=== PATIENT | female | born 1955 | race Caucasian/White ===

== ENCOUNTER → 2019-05-04 | Outpatient (CLI) | payer SELFPAY | PROVIDERS: Family Provider Nurse Practitioner Family; PCP Nurse Practitioner Family; Visit Provider Otolaryngology | DX: E03.4 Atrophy of thyroid (acquired) (principal); E89.0 Postprocedural hypothyroidism; R13.19 Other dysphagia | CPT/HCPCS: 76536 ==

== ENCOUNTER → 2019-05-27 12:36 | Outpatient (BNVA) | payer MEDICARE, OTHER, SELFPAY | PROVIDERS: Family Provider Nurse Practitioner Family; PCP Nurse Practitioner Family; Referring Provider Nurse Practitioner Family; Visit Provider Otolaryngology | DX: R49.0 Dysphonia (principal); R13.10 Dysphagia, unspecified; Z90.09 Acquired absence of other part of head and neck | CPT/HCPCS: 31575; 99214 ==

== ENCOUNTER → 2019-07-15 11:23 | Outpatient (BNVA) | payer MEDICARE, OTHER, SELFPAY | PROVIDERS: Family Provider Nurse Practitioner Family; PCP Nurse Practitioner Family; Visit Provider Nurse Practitioner Family | DX: L40.50 Arthropathic psoriasis, unspecified (principal); I10 Essential (primary) hypertension; E55.9 Vitamin D deficiency, unspecified; Z79.899 Other long term (current) drug therapy; R09.81 Nasal congestion; D64.9 Anemia, unspecified; E78.5 Hyperlipidemia, unspecified; E89.0 Postprocedural hypothyroidism; H66.93 Otitis media, unspecified, bilateral | CPT/HCPCS: 80053; 80061; 81001; 82306; 83036; 83540; 84443; 85025; 85651; 86140 ==

== ENCOUNTER → 2019-09-29 12:54 | Outpatient (BNVA) | payer MEDICARE, OTHER, SELFPAY | PROVIDERS: Family Provider Nurse Practitioner Family; PCP Nurse Practitioner Family; Visit Provider Urology | DX: N39.46 Mixed incontinence (principal); N39.0 Urinary tract infection, site not specified; B37.3 Candidiasis of vulva and vagina; R10.32 Left lower quadrant pain | CPT/HCPCS: 81001 ==

== ENCOUNTER 2019-10-05 09:47 | Outpatient (CLI) | payer MEDICARE, OTHER, SELFPAY ==
--- NOTE | 2019-10-05 13:55 | PFTS_ITS ---
Date of Study:10/05/19 Date of Dictation: MECHANICS: Forced vital capacity (FVC) is normal. Forced expiratory volume in one second (FEV1) is normal. FEV1/FVC is normal. FLOW VOLUME LOOP: No peak was seen in the expiratory flow likely secondary to submaximal effort. LUNG VOLUMES: Total lung capacity (TLC) is normal. Residual volume (RV) is normal. DIFFUSING CAPACITY FOR CARBON MONOXIDE: Normal. INTERPRETATION: The pulmonary function tests are normal. Lung volumes are normal Gas exchange (DLCO) is normal. MTDD
== END 2019-10-05 09:48 | disposition home or self-care (01) ==
LOC: RT 09:51
PROVIDERS: PCP Nurse Practitioner Family; Visit Provider Internal Medicine Critical Care Medicine
DX: J42 Unspecified chronic bronchitis (principal)
CPT/HCPCS: 94010; 94726; 94729

== ENCOUNTER → 2019-10-20 15:51 | Outpatient (BNVA) | payer MEDICARE, OTHER, SELFPAY | PROVIDERS: PCP Nurse Practitioner Family; Visit Provider Internal Medicine | DX: L40.50 Arthropathic psoriasis, unspecified (principal); M17.0 Bilateral primary osteoarthritis of knee; Z11.59 Encounter for screening for other viral diseases; Z11.1 Encounter for screening for respiratory tuberculosis; Z79.899 Other long term (current) drug therapy; M54.5 Low back pain; M35.3 Polymyalgia rheumatica; Z72.89 Other problems related to lifestyle | CPT/HCPCS: 20610; 36415; 80053; 85025; 85651; 86140; 86480; 86704; 86803; 87340; 99214; J2001; J3301 ==

== ENCOUNTER 2019-10-23 14:30 | Outpatient (CLI) | payer MEDICARE, OTHER, SELFPAY ==
--- NOTE | 2019-10-23 15:15 | MR_ITS ---
WS: [id number] MRI LUMBAR SPINE NONCONTRAST TECHNIQUE: Sagittal T1, T2 and STIR imaging. Axial T1 and T2 imaging. CLINICAL INFORMATION: M54.5 Low back pain COMPARISON: None. FINDINGS: Mild lumbar curve. No acute compression. No high-grade central canal stenosis. Anterior wedging in th e lower thoracic spine at T11 and T12. Mild disc space narrowing lower thoracic and lumbar spine. End plate degenerative changes L4-5. Endplate Schmorl's node inferior endplate L4. L1-L2: Slight retrolisthesis. Narrowing of the subarticular recess bilaterally. Moderate facet arthro alexia. Mild left and no significant right foraminal narrowing. L2-L3: Right pericentral protrusion with moderate central canal stenosis. Impingement traversing righ t L3 nerve root. Moderate facet arthropathy. Mild right and no significant left foraminal narrowing. L3-L4: Mild disc bulging with osteophytic ridging. Moderate central canal stenosis. Impingement on th e subarticular recess and traversing L4 nerve roots bilaterally. Mild right and no significant left f oraminal narrowing. Moderate facet arthropathy. L4-L5: Mild disc bulging with slight effacement of ventral thecal sac. Slight narrowing of the right subarticular recess. Mild right and no significant left foraminal narrowing. Moderate facet arthropat hy. L5-S1: Slight anterolisthesis L5 on S1. Tiny central protrusion with slight effacement of ventral the viki sac. Advanced facet arthropathy. Mild bilateral foraminal narrowing. Visualized pelvic bony structures: Normal. Paravertebral soft tissues: Normal. MR/MR lumbar spine wo con* [id number] IMPRESSION: 1. Mild lumbar curve. No acute compression. 2. Moderate central canal stenosis L2-L3 and L3-L4 due to disc bulging with os teophytic ridging and facet arthropathy. 3. Impingement on the right subarticular recess L2-3 and bilateral subarticula r recess L3-4. Impingement traversing right L3 and traversing L4 nerve roots re spectively. 4. Mild to moderate foraminal narrowing right L2-3, right L3-4, and bilateral L5-S1. 5. Moderate to advanced facet arthropathy L4-L5 and L5-S1.
== END 2019-10-23 14:31 | disposition home or self-care (01) ==
LOC: RADSHAW 14:38
PROVIDERS: PCP Nurse Practitioner Family; Visit Provider Internal Medicine
DX: M48.061 Spinal stenosis, lumbar region without neurogenic claudication (principal); M51.26 Other intervertebral disc displacement, lumbar region; M25.78 Osteophyte, vertebrae; M47.817 Spondylosis without myelopathy or radiculopathy, lumbosacral region
CPT/HCPCS: 72148

== ENCOUNTER → 2019-11-05 09:02 | Outpatient (BNVA) | payer MEDICARE, OTHER, SELFPAY | PROVIDERS: PCP Nurse Practitioner Family; Referring Provider Internal Medicine; Visit Provider Anesthesiology Pain Medicine | DX: M47.816 Spondylosis without myelopathy or radiculopathy, lumbar region (principal); M51.16 Intervertebral disc disorders with radiculopathy, lumbar region; M43.10 Spondylolisthesis, site unspecified; M62.830 Muscle spasm of back; Z79.891 Long term (current) use of opiate analgesic | CPT/HCPCS: 99204; 99205 ==

== ENCOUNTER 2019-11-12 06:00 | Outpatient (RCR) | payer MEDICARE, OTHER, SELFPAY | END 2019-12-04 23:59 | disposition home or self-care (01) | LOC: SPT 06:00 | PROVIDERS: PCP Nurse Practitioner Family; Referring Provider Anesthesiology Pain Medicine; Visit Provider Anesthesiology Pain Medicine | DX: M47.816 Spondylosis without myelopathy or radiculopathy, lumbar region (principal) | CPT/HCPCS: 97110; 97112; 97163 ==

== ENCOUNTER → 2019-11-23 12:08 | Outpatient (BNVA) | payer MEDICARE, OTHER, SELFPAY | PROVIDERS: PCP Nurse Practitioner Family; Visit Provider Anesthesiology Pain Medicine | DX: M47.816 Spondylosis without myelopathy or radiculopathy, lumbar region (principal) | CPT/HCPCS: 64493; 64494; 64495; J3490 ==

== ENCOUNTER → 2019-12-07 09:57 | Outpatient (BNVA) | payer MEDICARE, OTHER, SELFPAY | PROVIDERS: PCP Nurse Practitioner Family; Visit Provider Anesthesiology Pain Medicine | DX: M51.16 Intervertebral disc disorders with radiculopathy, lumbar region (principal); M47.816 Spondylosis without myelopathy or radiculopathy, lumbar region; M43.10 Spondylolisthesis, site unspecified; M62.830 Muscle spasm of back; F41.9 Anxiety disorder, unspecified | CPT/HCPCS: 99213 ==

== ENCOUNTER 2019-12-08 08:43 | Outpatient (CLI) | payer MEDICARE, OTHER, SELFPAY ==
--- NOTE | 2019-12-08 09:30 | XRR_ITS ---
PROCEDURE INFORMATION: Exam: XR Abdomen, 1 View Exam date and time: 12/08/2019 9:05 AM Age: 64 years old Clinical indication: Abdominal pain; Localized; Left lower quadrant (llq); Prior surgery; Surgery type: Hystero, gb; Additional info: Left side pain TECHNIQUE: Imaging protocol: XR of the abdomen. Views: Frontal supine view of the abdomen. 1 View. COMPARISON: CT abdomen con [id number] 02/19/2018 11:23 AM FINDINGS: Lungs: Calcified granuloma right lower lobe Gastrointestinal tract: Bowel gas pattern is nonspecific. No mass effect upon the bowel loops. Distal rectal gas. Scattered loops of air filled small bowel none of which are dilated. Organs: Surgical clips are present in the region of the gallbladder fossa. Bones/joints: Prior hip arthroplasty on the right No acute process within the osseous structures of the spine or pelvis. Soft tissues: No appreciable calcifications XR/XR KUB [id number] IMPRESSION: Bowel gas pattern is nonspecific.
== END 2019-12-08 08:44 | disposition home or self-care (01) ==
LOC: RAD 08:44
PROVIDERS: PCP Nurse Practitioner Family; Visit Provider Urology
DX: R10.32 Left lower quadrant pain (principal)
CPT/HCPCS: 74018

== ENCOUNTER 2019-12-08 08:46 | Outpatient (CLI) | payer MEDICARE, OTHER, SELFPAY ==
--- NOTE | 2019-12-08 09:30 | US_ITS ---
WS: [id number] RENAL ULTRASOUND HISTORY: LL quadrant pain COMPARISON: None available. TECHNIQUE: 2-D and color Doppler imaging of the kidney submitted. Right kidney: 11.1 cm x 4.8 cm x 5.1 cm. Normal echogenicity with no hydronephrosis or mass. Left kidney: 11.8 cm x 4.3 cm x 4.6 cm. Normal echogenicity with no hydronephrosis or mass. Aorta: Normal. Urinary Bladder: Minimally distended. US/US renal BI* [id number] IMPRESSION: Normal renal ultrasound.
== END 2019-12-08 08:47 | disposition home or self-care (01) ==
LOC: US 08:47
PROVIDERS: PCP Nurse Practitioner Family; Visit Provider Urology
DX: R10.32 Left lower quadrant pain (principal); N39.0 Urinary tract infection, site not specified
CPT/HCPCS: 74018; 76770; 81001

== ENCOUNTER → 2019-12-14 13:31 | Outpatient (BNVA) | payer MEDICARE, OTHER, SELFPAY | PROVIDERS: PCP Nurse Practitioner Family; Visit Provider Anesthesiology Pain Medicine | DX: M47.816 Spondylosis without myelopathy or radiculopathy, lumbar region (principal) | CPT/HCPCS: 64635; 64636; J1030 ==

== ENCOUNTER → 2019-12-28 12:44 | Outpatient (BNVA) | payer MEDICARE, OTHER, SELFPAY | PROVIDERS: PCP Nurse Practitioner Family; Visit Provider Anesthesiology Pain Medicine | DX: M47.816 Spondylosis without myelopathy or radiculopathy, lumbar region (principal) | CPT/HCPCS: 64635; 64636; J1030 ==

== ENCOUNTER 2020-01-08 13:19 | Outpatient (CLI) | payer MEDICARE, OTHER, SELFPAY ==
--- NOTE | 2020-01-08 14:15 | USCV_ITS ---
Naida Atkins Age: 65 Gender: F : 1955 Exam Date: 01/08/2020 13:14 Ordering Phys: Pasha Sol M.D ([email or web address]) Technologist: Exam Location: [facility] [place] Indication: PAIN OF LOWER EXTREMITY RIGHT LEFT Brachial 131.00 mmHg Brachial 137.00 mmHg Pressure (mmHg) Waveform Pressure (mmHg) Waveform 146.00 ORACLE PROGRAMMER 150.00 142.00 DPA 131.00 1.07 Ankle/Brachial Index 1.09 75.00 Pre-Exercise Toe Pressure 59.00 0.55 Pre-Exercise Toe/Brachial Index 0.43 FINDINGS Normal resting ABIs bilaterally Diminished resting TBI bilaterally CONCLUSIONS Normal resting ABIs with diminished TBIs bilaterally, suggestive of mild to moderate peripheral artery disease involving the distal vessels bilaterally Dr Akash Turpin MD FAC (Electronically Signed) Final Date: 10 January 2020 18:25 S
== END 2020-01-08 13:20 | disposition home or self-care (01) ==
LOC: US 13:20
PROVIDERS: PCP Nurse Practitioner Family; Visit Provider Internal Medicine
DX: M79.604 Pain in right leg (principal)
CPT/HCPCS: 93922

== ENCOUNTER → 2020-01-12 08:58 | Outpatient (BNVA) | payer MEDICARE, OTHER, SELFPAY | PROVIDERS: PCP Nurse Practitioner Family; Visit Provider Anesthesiology Pain Medicine | DX: M47.816 Spondylosis without myelopathy or radiculopathy, lumbar region (principal); M51.16 Intervertebral disc disorders with radiculopathy, lumbar region; M43.10 Spondylolisthesis, site unspecified; M62.830 Muscle spasm of back; Z79.891 Long term (current) use of opiate analgesic | CPT/HCPCS: 99213; 99214 ==

== ENCOUNTER 2020-02-01 10:46 | Outpatient (CLI) | payer MEDICARE, OTHER, SELFPAY ==
--- NOTE | 2020-02-01 10:55 | MM_ITS ---
WS: [id number] BILATERAL DIGITAL SCREENING MAMMOGRAM WITH CAD CLINICAL INFORMATION: SCREENING HISTORY: Screening mammogram. No current complaints. COMPARISON: and TECHNIQUE: Bilateral CC and MLO views. FINDINGS: Fatty-replaced breasts bilaterally. No suspicious focal mass, asymmetry, calcifications, or java web architect ural distortion. No evidence of malignancy. Stable intramammary lymph nodes. Lucent centered calcific ations. Stable clustered punctate calcifications left breast. MM/[place] [id number] IMPRESSION: BI-RADS: 2-Benign FOLLOW UP: 1 Year Follow-up Recommend return to annual screening mammography.
== END 2020-02-01 10:47 | disposition home or self-care (01) ==
LOC: RADSHAW 10:52
PROVIDERS: PCP Nurse Practitioner Family; Visit Provider Nurse Practitioner Family
DX: Z12.31 Encounter for screening mammogram for malignant neoplasm of breast (principal); M47.816 Spondylosis without myelopathy or radiculopathy, lumbar region; M51.16 Intervertebral disc disorders with radiculopathy, lumbar region; Z79.891 Long term (current) use of opiate analgesic
CPT/HCPCS: 64483; 64484; 77067; J1030; J3490

== ENCOUNTER → 2020-02-15 09:55 | Outpatient (BNVA) | payer MEDICARE, OTHER, SELFPAY | PROVIDERS: PCP Nurse Practitioner Family; Visit Provider Anesthesiology Pain Medicine | DX: M51.16 Intervertebral disc disorders with radiculopathy, lumbar region (principal); M47.816 Spondylosis without myelopathy or radiculopathy, lumbar region; M79.604 Pain in right leg; M79.605 Pain in left leg; M43.10 Spondylolisthesis, site unspecified; M19.90 Unspecified osteoarthritis, unspecified site; M62.830 Muscle spasm of back | CPT/HCPCS: 99212; 99213 ==

== ENCOUNTER → 2020-05-24 10:36 | Outpatient (BNVA) | payer MEDICARE, OTHER, SELFPAY | PROVIDERS: PCP Nurse Practitioner Family; Visit Provider Anesthesiology Pain Medicine | DX: M47.816 Spondylosis without myelopathy or radiculopathy, lumbar region (principal); M51.16 Intervertebral disc disorders with radiculopathy, lumbar region; M79.604 Pain in right leg; M79.605 Pain in left leg; M43.10 Spondylolisthesis, site unspecified; M19.90 Unspecified osteoarthritis, unspecified site; M62.830 Muscle spasm of back; Z79.891 Long term (current) use of opiate analgesic | CPT/HCPCS: 99214 ==

== ENCOUNTER → 2020-05-30 13:36 | Outpatient (BNVA) | payer MEDICARE, OTHER, SELFPAY | PROVIDERS: PCP Nurse Practitioner Family; Visit Provider Internal Medicine | DX: L40.50 Arthropathic psoriasis, unspecified (principal); M19.90 Unspecified osteoarthritis, unspecified site; Z11.1 Encounter for screening for respiratory tuberculosis; Z11.59 Encounter for screening for other viral diseases; Z79.899 Other long term (current) drug therapy; Z87.891 Personal history of nicotine dependence | CPT/HCPCS: 99214 ==

== ENCOUNTER 2020-05-31 10:48 | Outpatient (CLI) | payer MEDICARE, OTHER, SELFPAY ==
--- NOTE | 2020-05-31 11:11 | XR_ITS ---
WS: [id number] Exam: XR foot LT 2V [id number] Date/Time of Exam: 05/31/2020 11:19 AM Reason For Exam: M25.50 - Pain in unspecified joint No fracture or dislocation. Mild degenerative changes in the IP joints, the first MP joint in the mid foot joints. Small plantar heel spur. Normal soft tissues. XR/XR foot LT 2V [id number] IMPRESSION: 1. Mild degenerative changes. No other significant finding.
--- NOTE | 2020-05-31 11:11 | XR_ITS ---
WS: [id number] Exam: XR hand LT 2V [id number] Date/Time of Exam: 05/31/2020 11:19 AM Reason For Exam: L40.50 - Arthropathic psoriasis, unspecified No acute fracture or dislocation. Moderate DJD of the IP joints. Severe DJD at the carpometacarpal fahad int of thumb with dpyn-bi-yoax articulation. Normal soft tissues. XR/XR hand LT 2V [id number] IMPRESSION: 1. Moderate DJD of the IP joints. Advanced DJD at the carpometacarpal joint of the thumb.
--- NOTE | 2020-05-31 11:11 | XR_ITS ---
WS: [id number] Exam: XR knee LT 1-2V [id number] Date/Time of Exam: 05/31/2020 11:19 AM Reason For Exam: L40.50 - Arthropathic psoriasis, unspecified Comparison 10/04/2015 Moderately advanced tricompartmental degenerative change noted. No fracture or dislocation. No joint effusion noted. There are probably calcified loose joint bodies present. XR/XR knee LT 1-2V [id number] IMPRESSION: 1. Moderately advanced tricompartmental DJD. No fracture or joint effusion. 2. Probable calcified loose joint bodies.
--- NOTE | 2020-05-31 11:11 | XR_ITS ---
WS: [id number] Exam: XR knee RT 1-2V 16253 Date/Time of Exam: 05/31/2020 11:19 AM Reason For Exam: L40.50 - Arthropathic psoriasis, unspecified Comparison 09/02/2017. There is advanced tricompartmental DJD of the right knee most severe involving the medial joint leah rtment. There is spurring of the posterior patella. There are probably calcified loose joint bodies p resent. No joint effusion is seen. Valgus deformity of the knee. XR/XR knee RT -2V [id number] IMPRESSION: 1. Advanced tricompartmental DJD. No fracture or dislocation. 2. There are probably calcified loose joint bodies present.
--- NOTE | 2020-05-31 11:11 | XR_ITS ---
WS: [id number] Exam: XR foot RT 2V [id number] Date/Time of Exam: 05/31/2020 11:19 AM Reason For Exam: M25.50 - Pain in unspecified joint No fracture or dislocation. Mild degenerative changes of the first MP joint, the IP joints in the mid foot joints. Normal soft tissues. XR/XR foot RT 2V [id number] IMPRESSION: 1. Mild degenerative changes. 2. No fracture or dislocation.
--- NOTE | 2020-05-31 11:11 | XR_ITS ---
WS: [id number] Exam: XR shoulder LT min 2V* [id number] Date/Time of Exam: 05/31/2020 11:19 AM Reason For Exam: L40.50 - Arthropathic psoriasis, unspecified The projections of the shoulder reveal no fractures, anomalies, soft tissue swelling, or calcificatio ns. There is normal bony alignment. No irregularity of the bony architecture is noted. XR/XR shoulder LT min 2V* [id number] IMPRESSION: Negative left shoulder.
--- NOTE | 2020-05-31 11:11 | XR_ITS ---
WS: [id number] Exam: XR hand RT 2V [id number] Date/Time of Exam: 05/31/2020 11:19 AM Reason For Exam: L40.50 - Arthropathic psoriasis, unspecified No acute fracture or dislocation. Moderate degenerative changes in the IP joints. Severe DJD at the c arpometacarpal joint of the thumb with [id number]-ij-grom articulation. Normal soft tissues. XR/XR hand RT 2V [id number] IMPRESSION: 1. Moderate degenerative change of the IP joints. Severe degenerative change at the carpometacarpal joint of the thumb.
--- NOTE | 2020-05-31 11:11 | XR_ITS ---
WS: [id number] Exam: XR sacroiliac jts m 3V [id number] Date/Time of Exam: 05/31/2020 11:19 AM Reason For Exam: L40.9 - Psoriasis, unspecified No fracture or dislocation. Moderate degenerative change of the sacroiliac joints. The SI joints are open. Partially visualized right total hip replacement. XR/XR sacroiliac jts m 3V 29306 IMPRESSION: 1. Moderate SI joint DJD. No fracture or other significant finding.
--- NOTE | 2020-05-31 11:11 | XR_ITS ---
WS: [id number] Exam: XR shoulder RT min 2V* [id number] Date/Time of Exam: 05/31/2020 11:19 AM Reason For Exam: L40.50 - Arthropathic psoriasis, unspecified No fracture or dislocation. Minimal DJD of the glenohumeral joint and the AC joint. Normal soft tissu es. XR/XR shoulder RT min 2V* [id number] IMPRESSION: 1. Minimal degenerative changes.
[2020-05-31 12:39] LABS: Basophils # 0.1 10^3/uL (0.0-0.1); Basophils % 0.7 %; Eosinophils # 0.3 10^3/uL (0.0-0.8); Eosinophils % 2.9 %; Hemoglobin 11.6 g/dL (11.5-15.3); Lymphocytes % 29.5 %; Mean Corpuscular HGB Conc 31.4 g/dL (30.0-36.0); Mean Corpuscular Hemoglobin 27.9 pg (28.0-34.0); Mean Corpuscular Volume 88.9 fL (81-99); Mean Platelet Volume 10.4 fL (7.4-10.4); Monocytes # 0.5 10^3/uL (0.2-0.9); Monocytes % 4.9 %; Neutrophils # 6.28 10^3/uL (1.8-7.7); Neutrophils % 61.7 %; Nucleated Red Blood Cells % 0 %; Platelet Count 413 10^3/cmm (130-400); Red Blood Count 4.16 10^6/uL (4.1-5.3); Red Cell Distribution Width 13.3 % (12.1-15.1); White Blood Count 10.2 10^3/uL (4.0-10.0)
[2020-05-31 12:44] LABS: Alanine Aminotransferase 8 U/L (0-33); Albumin Level 3.8 g/dL (3.5-5.2); Alkaline Phosphatase 124 IU/L (35-105); Anion Gap 12.7 (5-19); Aspartate Amino Transferase 9 U/L (0-32); Blood Urea Nitrogen 20 mg/dL (8-23); C Reactive Protein 17.5 mg/L (0.0-4.9); Calcium 9.5 mg/dL (8.5-10.5); Carbon Dioxide 28 mmol/L (22-29); Chloride 97 mmol/L (98-107); Globulin 3.9 g/dL (1.3-4.6); Glomerular Filtration Rate 55.5 mL/min (90-130); Glucose 99 mg/dL (65-115); Osmolality Calculated 281 mOsm/kg (285-295); Potassium 3.7 mmol/L (3.5-5.1); Sodium 134 mmol/L (136-145); Total Bilirubin 0.4 mg/dL (0.15-1.2); Total Protein 7.7 g/dL (6.6-8.7)
[2020-05-31 15:06] LABS: Erythrocyte Sedimentation Rate 79 mm/hr (0-15)
[2020-05-31 15:41] LABS: Hepatitis B Core AB, Total Non-Reactive (Nonreactive); Hepatitis B Surface Antigen Non-Reactive (Nonreactive); Hepatitis C Virus Antibody Non-Reactive (Nonreactive)
[2020-06-02 14:58] LABS: Quantiferon Mitogen 9.14 IU/mL; Quantiferon Nil 0.01 IU/mL; Quantiferon Plus TB2 0.01 IU/mL; Quantiferon TB Gold NEGATIVE (NEGATIVE)
[2020-06-03 20:04] LABS: HLA-B27 NEGATIVE (NEGATIVE)
== END 2020-05-31 10:49 | disposition home or self-care (01) ==
LOC: RAD 11:02
PROVIDERS: PCP Nurse Practitioner Family; Visit Provider Internal Medicine
DX: L40.50 Arthropathic psoriasis, unspecified (principal); M32.9 Systemic lupus erythematosus, unspecified; D86.9 Sarcoidosis, unspecified; Z51.81 Encounter for therapeutic drug level monitoring; M46.1 Sacroiliitis, not elsewhere classified; M17.0 Bilateral primary osteoarthritis of knee; M19.042 Primary osteoarthritis, left hand
CPT/HCPCS: 36415; 72202; 73030; 73120; 73560; 73620; 80053; 85025; 85651; 86140; 86480; 86704; 86803; 86812; 87340

== ENCOUNTER → 2020-07-11 08:45 | Outpatient (BNVA) | payer MEDICARE, OTHER, SELFPAY | PROVIDERS: PCP Nurse Practitioner Family; Visit Provider Nurse Practitioner Family | DX: N39.0 Urinary tract infection, site not specified (principal); A49.9 Bacterial infection, unspecified; M79.604 Pain in right leg; M79.605 Pain in left leg; B37.3 Candidiasis of vulva and vagina | CPT/HCPCS: 81000; 81003 ==

== ENCOUNTER → 2020-08-26 11:27 | Outpatient (BNVA) | payer MEDICARE, OTHER, SELFPAY | PROVIDERS: PCP Nurse Practitioner Family; Visit Provider Internal Medicine | DX: L40.50 Arthropathic psoriasis, unspecified (principal); Z79.899 Other long term (current) drug therapy; Z87.891 Personal history of nicotine dependence | CPT/HCPCS: 36415; 80053; 85025; 99214 ==

== ENCOUNTER → 2020-12-08 15:18 | Outpatient (BNVA) | payer MEDICARE, OTHER, SELFPAY | PROVIDERS: PCP Nurse Practitioner Family; Visit Provider Nurse Practitioner Family | DX: I10 Essential (primary) hypertension (principal); D64.9 Anemia, unspecified; E78.2 Mixed hyperlipidemia; I82.409 Acute embolism and thrombosis of unspecified deep veins of unspecified lower extremity; M47.816 Spondylosis without myelopathy or radiculopathy, lumbar region; M51.16 Intervertebral disc disorders with radiculopathy, lumbar region; Z79.899 Other long term (current) drug therapy | CPT/HCPCS: 80053; 80061; 81003; 82306; 82607; 82728; 82746; 83036; 83540; 84443; 85025 ==

== ENCOUNTER → 2021-01-11 11:42 | Outpatient (BNVA) | payer MEDICARE, OTHER, SELFPAY | PROVIDERS: PCP Nurse Practitioner Family; Visit Provider Nurse Practitioner Family | DX: N39.0 Urinary tract infection, site not specified (principal); R10.2 Pelvic and perineal pain | CPT/HCPCS: 81003; 87086 ==

== ENCOUNTER → 2021-01-12 14:47 | Outpatient (BNVA) | payer MEDICARE, OTHER, SELFPAY | PROVIDERS: PCP Nurse Practitioner Family; Visit Provider Internal Medicine | DX: L40.50 Arthropathic psoriasis, unspecified (principal); Z79.899 Other long term (current) drug therapy; E55.9 Vitamin D deficiency, unspecified; F17.200 Nicotine dependence, unspecified, uncomplicated | CPT/HCPCS: 99213 ==

== ENCOUNTER 2021-01-16 15:24 | Outpatient (CLI) | payer MEDICARE, OTHER, SELFPAY ==
--- NOTE | 2021-01-16 15:38 | XR_ITS ---
WS: [id number] XR lumbar spine f/e only [id number] REASON FOR EXAM: SPONDYLOLISTHESIS,LUMBAR PLEASE COMMENT ON INSTABILITY FINDINGS: Intervertebral disc spaces L1-S1 are narrowed. No significant vertebral body abnormality. In the neutral position there is anterolisthesis of 7 mm of L2 in relation to L1. No other significan t listhesis is identified in the neutral position. On the extension views the above anterolisthesis increases by 2 to 3 mm. On the flexion view there is possibly 1 to 2 mm of reduction of the anterolisthesis, however this is somewhat equivocal. No other abnormal vertebral body movement is noted on the flexion and extension views. XR/XR lumbar spine f/e only 28561 IMPRESSION: Anterolisthesis of L2 in relation to L1 as above.
== END 2021-01-16 15:25 | disposition home or self-care (01) ==
LOC: RAD 15:30
PROVIDERS: PCP Nurse Practitioner Family; Visit Provider Nurse Practitioner
DX: M43.16 Spondylolisthesis, lumbar region (principal)
CPT/HCPCS: 72120

== ENCOUNTER 2021-02-07 14:03 | Outpatient (CLI) | payer MEDICARE, OTHER, SELFPAY ==
--- NOTE | 2021-02-07 14:30 | US_ITS ---
WS: [id number] TRANSVAGINAL PELVIC ULTRASOUND HISTORY: R10.2 - Pelvic and perineal pain COMPARISON: None available. Status post complete hysterectomy. There is no pelvic mass or fluid. No adnexal masses are identified . US/US transvaginal [id number] IMPRESSION: Normal transvaginal pelvic ultrasound in a patient status post complete hystere ctomy.
== END 2021-02-07 14:04 | disposition home or self-care (01) ==
LOC: RAD 14:07
PROVIDERS: PCP Nurse Practitioner Family; Visit Provider Nurse Practitioner Family
DX: R10.2 Pelvic and perineal pain (principal); Z90.710 Acquired absence of both cervix and uterus
CPT/HCPCS: 76830

== ENCOUNTER → 2021-02-21 11:16 | Outpatient (BNVA) | payer MEDICARE, OTHER, SELFPAY | PROVIDERS: PCP Nurse Practitioner Family; Visit Provider Nurse Practitioner Family | DX: R32 Unspecified urinary incontinence (principal) | CPT/HCPCS: 81003 ==

== ENCOUNTER → 2021-02-22 11:15 | Outpatient (BNVA) | payer MEDICARE, OTHER, SELFPAY | PROVIDERS: PCP Nurse Practitioner Family; Visit Provider Nurse Practitioner Family | DX: I10 Essential (primary) hypertension (principal) | CPT/HCPCS: 80053; 83880 ==

== ENCOUNTER 2021-02-27 09:33 | Outpatient (CLI) | payer MEDICARE, OTHER, SELFPAY ==
--- NOTE | 2021-02-27 09:51 | XR_ITS ---
WS: [id number] HIP WITH PELVIS RIGHT TECHNIQUE: 3 views of the right hip with pelvis CLINICAL INFORMATION: M25.551 - Pain in right hip COMPARISON: None. FINDINGS: Right LAISHA. No evidence of hardware loosening. Osteopenia. XR/XR hip RT 2-3V wo/w pel* [id number] IMPRESSION: Normal right LAISHA. Tonnis classification: NA
== END 2021-02-27 09:34 | disposition home or self-care (01) ==
PROVIDERS: PCP Nurse Practitioner Family; Visit Provider Nurse Practitioner Family
DX: M25.551 Pain in right hip (principal)
CPT/HCPCS: 73502

== ENCOUNTER → 2021-04-10 10:30 | Outpatient (BNVA) | payer MEDICARE, OTHER, SELFPAY | PROVIDERS: PCP Nurse Practitioner Family; Visit Provider Internal Medicine | DX: M19.90 Unspecified osteoarthritis, unspecified site (principal); M43.10 Spondylolisthesis, site unspecified; Z79.899 Other long term (current) drug therapy | CPT/HCPCS: 80053; 85025; 85651; 86140 ==

== ENCOUNTER 2021-05-08 14:42 | Outpatient (CLI) | payer MEDICARE, OTHER, SELFPAY ==
--- NOTE | 2021-05-08 15:00 | MM_ITS ---
WS: [id number] BILATERAL SCREENING DIGITAL MAMMOGRAM WITH CAD HISTORY: Screening evaluation. COMPARISON: 02/01/2020, 02/20/2019 and 01/30/2019 Bilateral CC and MLO views submitted. Computer aided detection analyzed. Breast composition: There are scattered areas of fibroglandular density. No suspicious masses, microc alcifications or architectural distortion. Asymmetries in the upper outer quadrant of each breast are stable over multiple prior examinations. Benign calcifications. MM/[place] [id number] IMPRESSION: BI-RADS: 2-Benign FOLLOW UP: 1 Year Follow-up
== END 2021-05-08 14:43 | disposition home or self-care (01) ==
LOC: RADSHAW 14:47
PROVIDERS: PCP Nurse Practitioner Family; Visit Provider Nurse Practitioner Family
DX: Z12.31 Encounter for screening mammogram for malignant neoplasm of breast (principal)
CPT/HCPCS: 77067

== ENCOUNTER → 2021-06-02 10:18 | Outpatient (BNVA) | payer MEDICARE, OTHER, SELFPAY | PROVIDERS: PCP Nurse Practitioner Family; Visit Provider Internal Medicine | DX: L40.50 Arthropathic psoriasis, unspecified (principal); R70.0 Elevated erythrocyte sedimentation rate; R60.9 Edema, unspecified; F17.210 Nicotine dependence, cigarettes, uncomplicated | CPT/HCPCS: 99214 ==

== ENCOUNTER 2021-06-26 10:00 | Emergency (ER) | payer MEDICARE, OTHER, SELFPAY ==
--- NOTE | 2021-06-26 10:01 | ECG_ITS ---
[facility] Test Date: 2021-06-26 Pat Name: Naida Atkins Department: Room: Gender: Female Outreach Nurse: : 1955 Requested By: Addie Chen Order Number: [id number] Isidra MD: Pasha Sol M.D. Measurements Intervals [place] Rate: 70 P: 46 AL: 209 QRS: 24 QRSD: 102 T: 41 QT: 392 QTc: 425 Interpretive Statements SINUS RHYTHM No previous ECG available for comparison Electronically Signed On 06-26-2021 12:12:18 SHREDDED FILLER MACHINE WRAPPER LAYER by Pasha Sol M.D. [id number]
--- NOTE | 2021-06-26 10:01 | XR_ITS ---
WS: [id number] PORTABLE CHEST HISTORY: chest pain COMPARISON: None available. Lungs are mildly hyperinflated. Benign granuloma throughout the RIGHT lung. No pneumonia. Normal vasculature. No pleural effusion or pneumothorax. Cardiac size: Normal. Mediastinum/Aorta: Normal mediastinum. No osseous abnormality seen. XR/XR chest 1V portable [id number] IMPRESSION: Mild chronic emphysema and prior granulomatous disease. No pneumonia.
[2021-06-26 10:07] VITALS: BP 161/87; PULSE 75; RESP 16; TEMP 36.3; O2SAT 100; BMI 43.2
--- NOTE | 2021-06-26 10:18 | W.ED.CHESTPA ---
HPI - Chest Pain General: Chief Complaint: Chest Pain Stated Complaint: POSSIBLE HEART ATTACK Time Seen by Provider: 06/26/21 10:08 Source: patient Mode of arrival: ambulatory History of Present Illness: Six 6-year-old female presents emergency room an episode of chest pain that began this morning essentially while at rest she was preparing a meal upper left chest pain radiating to left shoulder lasted about 15 minutes then resolve spontaneously. She has no known history of coronary disease she has a history of psoriatic arthritis. Late last month she was seen by her eligibility clerk there was an elevated BNP so an echocardiogram was ordered. She is not previously had any kind of stress testing or angiogram. Patient has not previously had any episodes of chest pain prior to this morning. She denies any history of coronary disease she is not diabetic she does have a history of hypertension. MD complaint: chest pain Onset (ago): hour(s) Timing of current episode: episodic Prior episodes: No Onset: during rest Pain location: left chest Pain radiation: left shoulder Severity: mild Quality: heaviness Relieving factors: nothing Exacerbating factors: nothing Associated symptoms: Deny abdominal pain, diaphoresis, dyspnea, fever(s), leg edema, nausea, palpitations, sense of impending doom, syncope or vomiting Treatment prior to arrival: none Review of Systems Const: Denies: fever(s) or diaphoresis ENMT: Denies: throat pain, ear or mastoid pain, nasal discharge or nasal congestion Card: Denies: palpitations or syncope Resp: Denies: dyspnea GI: Denies: abdominal pain, nausea or vomiting : Denies: flank pain, difficulty voiding, dysuria, urinary frequency or urinary urgency Skin/Breast: Denies: rash or pruritus [facility] ED PFSH: Medical History (Updated 06/26/21 @ 13:00 by Jonnie Pickering DO) Anemia Asthma Bacterial otitis media Breast cancer screening by mammogram CKD (chronic kidney disease) COPD (chronic obstructive pulmonary disease) DDD (degenerative disc disease) DVT (deep venous thrombosis) Edema Edema Essential hypertension Fatigue Fibromyalgia GERD (gastroesophageal reflux disease) Hyperlipidemia Lower respiratory infection Lower respiratory infection Lumbago Medication management Mixed stress and urge urinary incontinence Obesity Obesity, Class III, BMI 40-49.9 (morbid obesity) SAURAV (obstructive sleep apnea) Osteoarthritis Otitis media Pelvic pain in female Post-surgical hypothyroidism Psoriatic arthritis Recurrent UTI Right hip pain RLS (restless legs syndrome) Sinusitis Urinary incontinence Urinary incontinence Vitamin B12 deficiency anemia Vitamin D deficiency Yeast vaginitis Surgical History H/O thyroidectomy Hx of elbow surgery S/P carpal tunnel release S/P cholecystectomy S/P hip replacement S/P hysterectomy Family History Brother Cancer Father Cancer Other CAD (coronary artery disease) Diabetes Hyperlipidemia Hypertension Obesity Social History Smoking and tobacco status: former smoker Alcohol intake: current Alcohol intake frequency: holidays/special occasions only Adopted: No Caregiver/support person: No Lives independently: No Household members: spouse Marital status: Current occupational status: disabled Previous occupational history: [employer] History of recent travel: No Current gender identity: Female Physical Exam Const: COMMON NORMALS: no acute distress GENERAL APPEARANCE: cooperative and comfortable ORIENTATION/CONSCIOUSNESS: Yes awake, Yes oriented to person, Yes oriented to place and Yes oriented to time HENMT: COMMON NORMALS: normocephalic, atraumatic and hearing grossly normal bilaterally HEAD & SCALP: normocephalic and atraumatic Neck/C-Spine: COMMON NORMALS: no JVD Resp: COMMON NORMALS: normal respiratory effort, No retractions, No use of accessory muscles and clear to auscultation bilaterally AUSCULTATION: clear to auscultation bilaterally Cardio: COMMON NORMALS: no JVD, regular rate, regular rhythm and No murmurs present (Cardio) RATE: regular rate RHYTHM: regular rhythm GI: COMMON NORMALS: Soft to palpation and No hepatosplenomegaly present AUSCULTATION: Yes normoactive bowel sounds PALPATION: Yes Soft to palpation, No Tenderness to palpation present (GI), No Guarding due to palpation present (GI) and Yes No hepatosplenomegaly present Extremity: COMMON NORMALS: normal to inspection, capillary refill normal, no clubbing, cyanosis or edema, no calf tenderness and no pedal edema Neuro: SENSORIUM/ORIENTATION: Yes oriented to person, Yes oriented to place and Yes oriented to time Skin: COMMON NORMALS: no rashes or lesions noted GENERAL SKIN EXAM: no rashes or lesions noted Course Vital Signs: Vital signs: Vital Signs Temperature 97.4 F L 02/21/22 10:30 Pulse Rate 74 06/26/21 13:08 Respiratory Rate 13 06/26/21 13:08 Blood Pressure 130/88 06/26/21 13:08 Pulse Oximetry 99 06/26/21 13:08 MDM - Chest Pain Medical Decision Making Labs imaging EKG reviewed with the patient no acute ST changes no recurrence of symptoms we will add a set Sorbide mononitrate and aspirin daily. Set up for a Lexiscan sestamibi stress test and recheck with her primary care doctor after this is completed follow-up in the emergency room if she has any recurrence of chest pain. Medical Records I reviewed the patient's medical records. Lab Data I reviewed the patient's lab results. : 06/26/21 10:25 06/26/21 10:25 Radiology Impressions Chest X-Ray 06/26/21 10:01 IMPRESSION: Mild chronic emphysema and prior granulomatous disease. No pneumonia. Laboratory Results WBC 11.7 10^3/uL (4.0-10.0) H 06/26/21 10:25 RBC 4.63 10^6/uL (4.1-5.3) 06/26/21 10:25 Hgb 13.6 g/dL (11.5-15.3) 06/26/21 10:25 Hct 42.5 % (37.0-47.0) 06/26/21 10:25 MCV 91.8 fl (81-99) 06/26/21 10:25 MCH 29.4 pg (28.0-34.0) 06/26/21 10:25 MCHC 32.0 g/dL (30.0-36.0) 06/26/21 10:25 RDW 13.8 % (12.1-15.1) 06/26/21 10:25 Plt Count 346 10^3/cmm (130-400) 06/26/21 10:25 MPV 10.8 fL (7.4-10.4) H 06/26/21 10:25 Neut % (Auto) 56.3 % 06/26/21 10:25 Lymph % (Auto) 34.7 % 06/26/21 10:25 [place] % (Auto) 5.3 % 06/26/21 10:25 Eos % (Auto) 2.5 % 06/26/21 10:25 Baso % (Auto) 0.5 % 06/26/21 10:25 Neut # (Auto) 6.60 10^3/uL (1.8-7.7) 06/26/21 10:25 Lymph # (Auto) 4.1 10^3/uL (0.8-4.8) 06/26/21 10:25 [place] # (Auto) 0.6 10^3/uL (0.2-0.9) 06/26/21 10:25 Eos # (Auto) 0.3 10^3/uL (0.0-0.8) 06/26/21 10:25 Baso # (Auto) 0.1 10^3/uL (0.0-0.1) 06/26/21 10:25 Nucleated RBC % (auto) 0 % 06/26/21 10:25 Nucleated RBCs # 0.0 /100WBC 06/26/21 10:25 Sodium 139 mmol/L (136-145) 06/26/21 10:25 Potassium 4.5 mmol/L (3.5-5.1) 06/26/21 10:25 Chloride 103 mmol/L (98-107) 06/26/21 10:25 Carbon Dioxide 23 mmol/L (22-29) 06/26/21 10:25 Anion Gap 17.5 (5-19) 06/26/21 10:25 BUN 29 mg/dL (8-23) H 06/26/21 10:25 Creatinine 0.8 mg/dL (0.5-0.9) 06/26/21 10:25 GFR Calculation 71.5 mL/min (90-130) L 06/26/21 10:25 Glucose 87 mg/dL (65-115) 06/26/21 10:25 Calculated Osmolality 293 mOsm/kg (285-295) 06/26/21 10:25 Calcium 9.8 mg/dL (8.5-10.5) 06/26/21 10:25 Total Bilirubin 0.3 mg/dL (0.15-1.2) 06/26/21 10:25 AST 9 U/L (0-32) 06/26/21 10:25 ALT 10 U/L (0-33) 06/26/21 10:25 Alkaline Phosphatase 93 IU/L (35-105) 06/26/21 10:25 Troponin T Baseline 8 ng/L (0-10) 06/26/21 10:25 Troponin T 120 Minute 6.94 ng/L (0-10) 06/26/21 12:00 Delta Troponin T -1.06 ABS# (0-10) L 06/26/21 12:00 Total Protein 7.8 g/dL (6.6-8.7) 06/26/21 10:25 Albumin 4.0 g/dL (3.5-5.2) 06/26/21 10:25 Globulin 3.8 g/dL (1.3-4.6) 06/26/21 10:25 Discharge Plan Discharge Patient Disposition: Home Clinical Impression: Atypical chest pain Condition: Stable Prescriptions: New isosorbide mononitrate 30 mg tablet extended release 24 hr 30 mg PO DAILY Qty: 30 0RF aspirin 81 mg tablet,delayed release (DR/EC) 81 mg PO DAILY Qty: 30 0RF No Action Tremfya 100 mg/mL auto-injector 100 mg SUBCUT .COMPLEX Qty: 1 5RF Rx Instructions: 100 mg SUBCUT at weeks 0, 4, and then every 8 weeks thereafter.; doxycycline monohydrate 100 mg capsule 100 mg PO BID 10 Days Qty: 20 0RF (DME) CPAP See Rx Instructions .Route .MEDSUPPLY Qty: 1 0RF Rx Instructions: As directed hydroxyzine HCl 25 mg tablet 25 mg PO TID PRN (Reason: itching) 15 Days Qty: 25 0RF pramipexole 0.75 mg tablet 0.75 mg PO DAILY Qty: 30 2RF oxybutynin chloride 15 mg tablet extended release 24 hr 30 mg PO DAILY 30 Days Qty: 60 2RF fluconazole 150 mg tablet 150 mg PO .EVERY 3RD DAY 0RF [place] 10-325 mg Tablet 1 tab PO TID PRN (Reason: Pain) 0RF ibuprofen 200 mg Tablet 600 - 800 mg PO Q6H PRN (Reason: Pain) 0RF fluoxetine 40 mg capsule 40 mg PO DAILY 0RF tizanidine 4 mg tablet 4 mg PO BID PRN (Reason: Muscle Spasm) 0RF metoprolol succinate 100 mg tablet extended release 24 hr 100 mg PO DAILY 0RF amlodipine 5 mg tablet 5 mg PO DAILY 0RF chlorthalidone 50 mg tablet 100 mg PO QAM 0RF levothyroxine 100 mcg tablet 100 mcg PO QAM 0RF pantoprazole 40 mg tablet,delayed release (DR/EC) 40 mg PO DAILY 0RF estradiol 2 mg tablet 2 mg PO DAILY 0RF albuterol sulfate 90 mcg/actuation HFA aerosol inhaler 1 puff inhalation Q6H PRN (Reason: Shortness Of Breath) 0RF lisinopril 40 mg tablet 40 mg PO DAILY 0RF cholecalciferol (vitamin D3) 1,250 mcg (50,000 unit) capsule 50,000 unit PO Q7D 0RF Rx Instructions: on saturday Voltaren Arthritis Pain 1 % gel 2 g topical QID PRN (Reason: Pain) 0RF Rx Instructions: apply to single elbow, wrist or hand; for hand includes palm/fingers/back of hand Discharge Orders: Discharge ED (Routine); Ordered 06/26/21 Ordered By: Jonnie Pickering Referrals: VEGA Hopper, ANALYTICS SPECIALIST [Primary Care Provider] - Discharge Diet: Usual diet Discharge Activity: Limit activity as instructed Patient Instructions: Opioid Safety Activity Restrictions/Additional Instructions: manager house will call to make arrangements for you to have a Lexiscan sestamibi stress test. Start the aspirin Isorbid mononitrate as listed above. Coding Level of Care Code ED Violin Mechanic for Kalee Trammell
[2021-06-26 10:30] VITALS: BP 161/87; PULSE 75; RESP 16; TEMP 36.3; O2SAT 100
[2021-06-26 10:33] LABS: Basophils # 0.1 10^3/uL (0.0-0.1); Basophils % 0.5 %; Eosinophils # 0.3 10^3/uL (0.0-0.8); Eosinophils % 2.5 %; Hematocrit 42.5 % (37.0-47.0); Hemoglobin 13.6 g/dL (11.5-15.3); Lymphocytes # 4.1 10^3/uL (0.8-4.8); Lymphocytes % 34.7 %; Mean Corpuscular Hemoglobin 29.4 pg (28.0-34.0); Mean Corpuscular Volume 91.8 fl (81-99); Mean Platelet Volume 10.8 fL (7.4-10.4); Monocytes # 0.6 10^3/uL (0.2-0.9); Monocytes % 5.3 %; Neutrophils % 56.3 %; Nucleated Red Blood Cells % 0 %; Platelet Count 346 10^3/cmm (130-400); Red Blood Count 4.63 10^6/uL (4.1-5.3); Red Cell Distribution Width 13.8 % (12.1-15.1); White Blood Count 11.7 10^3/uL (4.0-10.0)
[2021-06-26 10:56] LABS: Alanine Aminotransferase 10 U/L (0-33); Alkaline Phosphatase 93 IU/L (35-105); Aspartate Amino Transferase 9 U/L (0-32); Blood Urea Nitrogen 29 mg/dL (8-23); Calcium 9.8 mg/dL (8.5-10.5); Carbon Dioxide 23 mmol/L (22-29); Chloride 103 mmol/L (98-107); Globulin 3.8 g/dL (1.3-4.6); Glomerular Filtration Rate 71.5 mL/min (90-130); Glucose 87 mg/dL (65-115); Osmolality Calculated 293 mOsm/kg (285-295); Sodium 139 mmol/L (136-145); Total Bilirubin 0.3 mg/dL (0.15-1.2); Total Protein 7.8 g/dL (6.6-8.7)
[2021-06-26 11:00] LABS: Anion Gap 17.5 (5-19); Potassium 4.5 mmol/L (3.5-5.1)
[2021-06-26 11:04] LABS: Troponin(5th) Baseline 8 ng/L (0-10)
--- NOTE | 2021-06-26 12:01 | ECG_ITS ---
[facility] Test Date: 2021-06-26 Pat Name: Naida Atkins Department: Room: Gender: Female Hostess Host: : 1955 Requested By: Addie Chen Order Number: [id number] Isidra MD: Pasha Sol M.D. Measurements Intervals [place] Rate: 68 P: 13 NE: 215 QRS: 26 QRSD: 96 T: 47 QT: 395 QTc: 423 Interpretive Statements SINUS RHYTHM WITH FIRST DEGREE AV BLOCK Compared to ECG 06/26/2021 10:08:49 First degree AV block now present Electronically Signed On 06-26-2021 12:16:19 RECREATION COUNSELOR by Pasha Sol M.D. [id number]
[2021-06-26 12:22] LABS: Troponin 5 2HR 6.94 ng/L (0-10)
[2021-06-26 13:03] LABS: Troponin 5 2HR Delta -1.06 ABS# (0-10)
[2021-06-26 13:08] VITALS: BP 130/88; PULSE 74; RESP 13; O2SAT 99
== END 2021-06-26 13:12 | disposition home or self-care (01) ==
PROVIDERS: Physician Assistant; Emergency Provider Family Medicine; PCP Nurse Practitioner Family
DX: R07.89 Other chest pain (principal); Z85.3 Personal history of malignant neoplasm of breast; J44.9 Chronic obstructive pulmonary disease, unspecified; I10 Essential (primary) hypertension; E78.5 Hyperlipidemia, unspecified; Z87.891 Personal history of nicotine dependence
CPT/HCPCS: 71045; 80053; 84484; 85025; 93005; 99283

== ENCOUNTER → 2021-07-21 11:44 | Outpatient (BNVA) | payer MEDICARE, OTHER, SELFPAY | PROVIDERS: PCP Nurse Practitioner Family; Visit Provider Internal Medicine | DX: R06.02 Shortness of breath (principal); E66.01 Morbid (severe) obesity due to excess calories; E78.2 Mixed hyperlipidemia; Z87.891 Personal history of nicotine dependence | CPT/HCPCS: 99214 ==

== ENCOUNTER → 2021-07-26 13:58 | Outpatient (BNVA) | payer MEDICARE, OTHER, SELFPAY | PROVIDERS: PCP Nurse Practitioner Family; Visit Provider Nurse Practitioner Family | DX: M25.512 Pain in left shoulder (principal); M19.90 Unspecified osteoarthritis, unspecified site | CPT/HCPCS: 73030 ==

== ENCOUNTER 2021-08-07 19:11 | Emergency (ER) | payer MEDICARE, OTHER, SELFPAY ==
[2021-08-07 19:24] VITALS: BP 157/73; PULSE 75; RESP 16; TEMP 36.9; O2SAT 97; BMI 42.9
--- NOTE | 2021-08-07 19:34 | USR_ITS ---
PROCEDURE INFORMATION: Exam: US Duplex Left Lower Extremity Veins, Limited Exam date and time: 08/07/2021 8:14 PM Age: 66 years old Clinical indication: Swelling (edema) of limb; Lower extremity, left; Additional info: Left leg swelling TECHNIQUE: Imaging protocol: Real-time Duplex ultrasound of the Left Lower Extremity with 2-D no scale, color Doppler flow and spectral waveform analysis with image documentation. Limited exam focused on the left lower extremity veins. COMPARISON: US transvaginal [id number] 02/07/2021 2:32 PM FINDINGS: Left deep veins: Unremarkable. The common femoral, femoral, proximal profunda femoral and popliteal veins are patent without thrombus. Normal Doppler waveforms. Normal compressibility and/or augmentation response. Left superficial veins: Unremarkable. Saphenofemoral junction is patent without thrombus. Soft tissues: Unremarkable. US/CV venous duplex [facility] [id number] IMPRESSION: No evidence of deep vein thrombosis, left lower extremity.
--- NOTE | 2021-08-07 19:35 | USR_ITS ---
PROCEDURE INFORMATION: Exam: US Duplex Left Lower Extremity Arteries Or Arterial Bypass Grafts Exam date and time: 08/07/2021 8:36 PM Age: 66 years old Clinical indication: Pain; Other: Discoloration; Leg, lower and foot; Left; Additional info: Pain, discoloration ext TECHNIQUE: Imaging protocol: Left Real-time duplex scan of the arteries or arterial bypass grafts of the left lower extremity with 2-D no scale, color Doppler flow and spectral waveform analysis. Images documented and saved. COMPARISON: No relevant prior studies available. FINDINGS: Limitations: The study is limited by patient body habitus. Left common femoral artery: No occlusion or significant stenosis. Triphasic waveform. Left superficial femoral artery: No occlusion or significant stenosis. Triphasic waveform. Left popliteal artery: No occlusion or significant stenosis. Triphasic waveform. Left calf/foot arteries: No occlusion or significant stenosis in the visualized arteries. Biphasic waveforms. Dorsalis pedis artery is patent. US/CV arterial duplex [facility] [id number] IMPRESSION: 1. The study is limited by patient body habitus. 2. No evidence of hemodynamically significant arterial stenosis or arterial occlusion in the left lower extremity.
--- NOTE | 2021-08-07 20:20 | XRR_ITS ---
PROCEDURE INFORMATION: Exam: XR Left Tibia and Fibula Exam date and time: 08/07/2021 9:18 PM Age: 66 years old Clinical indication: Pain; Ankle; Left; Additional info: Erythema TECHNIQUE: Imaging protocol: XR Left tibia and fibula. Views: 2 views. COMPARISON: CR XR foot LT 2V [id number] 05/31/2020 11:53 AM FINDINGS: Bones/joints: No fracture or other acute osseous abnormality. Degenerative change of the knee joint. The ankle joint is grossly unremarkable. Soft tissues: diffuse subcutaneous edema noted. Punctate soft tissue calcifications are noted anteriorly, likely representing small dermal calcifications or small phleboliths. XR/XR tibia fibula LT 2V [id number] IMPRESSION: 1. Diffuse subcutaneous edema noted. 2. No fracture or other acute osseous abnormality. No findings of osteomyelitis.
--- NOTE | 2021-08-07 20:23 | W.ED.GENADLT ---
Documented by User: Na Francis MD 08/08/21 11:21 HPI - General Adult General: Chief complaint: Extremity Problem,Nontraumatic Stated complaint: ultrasound on lft leg Time Seen by Provider: 08/07/21 19:48 History of Present Illness: Patient is a 66-year-old female with a history of CKD, DVT not on anticoagulation, edema who presents the emergency room for evaluation of left foot pain and progressive rash. Patient tells me that since yesterday night, she has noticed a rash on her left leg that has now progressed to the back of her calf. Patient denies any fever chills, recent tick bites, recent fall or injury. Patient describes the legs is painful. Patient denies any constitutional symptoms. Denies any chest pain shortness breath, IV drug use, diabetes or history of immunocompromise. Onset:1 day Duration:ongoing Location:home Severity:moderate Associated symptoms: Deny chest pain, dyspnea, nausea, rash, palpitations or vomiting Review of Systems Const: Denies: fever(s) or chills Eyes: Denies: change in vision ENMT: Denies: mouth pain Card: Denies: chest pain or palpitations Resp: Denies: dyspnea or non-productive cough GI: Denies: abdominal pain, nausea, vomiting or diarrhea : Denies: dysuria Musc: Denies: extremity pain Skin/Breast: Denies: rash or new lesions Neuro: Denies: weakness in extremities Psych: Reports: other (Normal mood) Ronan/Lymph: Denies: easy bruising PFSH ED PFSH: Medical History Anemia Asthma Bacterial otitis media Breast cancer screening by mammogram CKD (chronic kidney disease) COPD (chronic obstructive pulmonary disease) DDD (degenerative disc disease) DVT (deep venous thrombosis) Edema Edema Essential hypertension Fatigue Fibromyalgia GERD (gastroesophageal reflux disease) Hyperlipidemia Left shoulder pain Lower respiratory infection Lower respiratory infection Lumbago Medication management Mixed stress and urge urinary incontinence Obesity Obesity, Class III, BMI 40-49.9 (morbid obesity) SAURAV (obstructive sleep apnea) Osteoarthritis Otitis media Pelvic pain in female Post-surgical hypothyroidism Psoriatic arthritis Recurrent UTI Right hip pain RLS (restless legs syndrome) Sinusitis Urinary incontinence Urinary incontinence Vitamin B12 deficiency anemia Vitamin D deficiency Yeast vaginitis Surgical History H/O thyroidectomy Hx of elbow surgery S/P carpal tunnel release S/P cholecystectomy S/P hip replacement S/P hysterectomy Family History Brother Cancer Father Cancer Other CAD (coronary artery disease) Diabetes Hyperlipidemia Hypertension Obesity Social History Smoking and tobacco status: never smoked Alcohol intake: former Adopted: No Caregiver/support person: No Lives independently: No Household members: spouse Marital status: Current occupational status: disabled Previous occupational history: FACTORY History of recent travel: No Current gender identity: Female Physical Exam Const: COMMON NORMALS: alert HENMT: COMMON NORMALS: atraumatic HEAD & SCALP: atraumatic MOUTH: moist mucous membranes not abnormal Eye: COMMON NORMALS: EOMs intact bilaterally and conjunctivae normal CONJUNCTIVA: Yes conjunctivae normal Neck/C-Spine: COMMON NORMALS: full ROM and supple Resp: COMMON NORMALS: normal respiratory effort and clear to auscultation bilaterally AUSCULTATION: clear to auscultation bilaterally Cardio: COMMON NORMALS: regular rate RATE: regular rate GI: COMMON NORMALS: Soft to palpation and non-tender PALPATION: Yes Soft to palpation Extremity: COMMON NORMALS: full ROM Neuro: SENSORIUM/ORIENTATION: Yes alert MOTOR EXAM: No Abnormal motor strength present and Other motor observations present (no focal motor deficits) Psych: COMMON NORMALS: speech normal SPEECH: Yes normal speech MOOD & AFFECT: Yes euthymic mood Course Vital Signs: Vital signs: Vital Signs Temperature 98.7 F 08/07/21 22:28 Pulse Rate 70 08/08/21 00:02 Respiratory Rate 16 08/08/21 00:22 Blood Pressure 127/72 08/08/21 00:02 Pulse Oximetry 93 08/08/21 00:02 [facility] - General Adult Lab Data : 08/07/21 21:47 08/07/21 21:47 Radiology Impressions Venous Duplex 08/07/21 19:34 IMPRESSION: No evidence of deep vein thrombosis, left lower extremity. Duplex Scan Lower Extremity Artery 08/07/21 19:35 IMPRESSION: 1. The study is limited by patient body habitus. 2. No evidence of hemodynamically significant arterial stenosis or arterial occlusion in the left lower extremity. Tibia/Fibula X-Ray 08/07/21 20:20 IMPRESSION: 1. Diffuse subcutaneous edema noted. 2. No fracture or other acute osseous abnormality. No findings of osteomyelitis. Laboratory Results WBC 14.2 10^3/uL (4.0-10.0) H 08/07/21 21:47 RBC 3.73 10^6/uL (4.1-5.3) L 08/07/21 21:47 Hgb 11.0 g/dL (11.5-15.3) L 08/07/21 21:47 Hct 35.4 % (37.0-47.0) L 08/07/21 21:47 MCV 94.9 fl (81-99) 08/07/21 21:47 MCH 29.5 pg (28.0-34.0) 08/07/21 21:47 MCHC 31.1 g/dL (30.0-36.0) 08/07/21 21:47 RDW 13.0 % (12.1-15.1) 08/07/21 21:47 Plt Count 334 10^3/cmm (130-400) 08/07/21 21:47 MPV 10.0 fL (7.4-10.4) 08/07/21 21:47 Neut % (Auto) 54.4 % 08/07/21 21:47 Lymph % (Auto) 35.6 % 08/07/21 21:47 Clinch % (Auto) 5.7 % 08/07/21 21:47 Eos % (Auto) 3.5 % 08/07/21 21:47 Baso % (Auto) 0.4 % 08/07/21 21:47 Neut # (Auto) 7.73 10^3/uL (1.8-7.7) H 08/07/21 21:47 Lymph # (Auto) 5.1 10^3/uL (0.8-4.8) H 08/07/21 21:47 Clinch # (Auto) 0.8 10^3/uL (0.2-0.9) 08/07/21 21:47 Eos # (Auto) 0.5 10^3/uL (0.0-0.8) 08/07/21 21:47 Baso # (Auto) 0.1 10^3/uL (0.0-0.1) 08/07/21 21:47 Nucleated RBC % (auto) 0 % 08/07/21 21:47 Nucleated RBCs # 0.0 /100WBC 08/07/21 21:47 Sodium 138 mmol/L (136-145) 08/07/21 21:47 Potassium 4.5 mmol/L (3.5-5.1) 08/07/21 21:47 Chloride 101 mmol/L (98-107) 08/07/21 21:47 Carbon Dioxide 26 mmol/L (22-29) 08/07/21 21:47 Anion Gap 15.5 (5-19) 08/07/21 21:47 BUN 15 mg/dL (8-23) 08/07/21 21:47 Creatinine 0.7 mg/dL (0.5-0.9) 08/07/21 21:47 GFR Calculation 83.5 mL/min (90-130) L 08/07/21 21:47 Glucose 88 mg/dL (65-115) 08/07/21 21:47 Calculated Osmolality 286 mOsm/kg (285-295) 08/07/21 21:47 Calcium 9.3 mg/dL (8.5-10.5) 08/07/21 21:47 C-Reactive Protein 55.2 mg/L (0.0-4.9) H 08/07/21 21:47 Discharge Plan Discharge Patient Disposition: Home Clinical Impression: Cellulitis Condition: Stable Prescriptions: New Bactrim DS 800-160 mg tablet 1 tab PO BID 10 Days Qty: 20 0RF cephalexin 500 mg capsule 500 mg PO BID 10 Days Qty: 20 0RF Diflucan 150 mg tablet 150 mg PO DAILY Qty: 1 0RF Rx Instructions: administer on day 1 of therapy No Action Tremfya 100 mg/mL auto-injector 100 mg SUBCUT .COMPLEX Qty: 1 5RF Rx Instructions: 100 mg SUBCUT at weeks 0, 4, and then every 8 weeks thereafter.; nitroglycerin 0.4 mg tablet, sublingual 0.4 mg sublingual Q5M PRN (Reason: chest pain) Qty: 25 3RF Rx Instructions: do not exceed 3 doses per episode betamethasone acet,sod phos 6 mg/mL suspension 6 mg IM ONCE Qty: 1 0RF (DME) CPAP See Rx Instructions .Route .MEDSUPPLY Qty: 1 0RF Rx Instructions: As directed hydroxyzine HCl 25 mg tablet 25 mg PO TID PRN (Reason: itching) 15 Days Qty: 25 0RF oxybutynin chloride 15 mg tablet extended release 24 hr 30 mg PO DAILY 30 Days Qty: 60 2RF pramipexole 0.75 mg tablet See Rx Instructions .ROUTE .COMPLEX Qty: 30 2RF Dose Instruction: TAKE 1 TABLET BY MOUTH EVERY DAY Rx Instructions: TAKE 1 TABLET BY MOUTH EVERY DAY fluoxetine 40 mg capsule See Rx Instructions .ROUTE .COMPLEX Qty: 30 2RF Dose Instruction: TAKE ONE CAPSULE BY MOUTH EVERY DAY Rx Instructions: TAKE ONE CAPSULE BY MOUTH EVERY DAY [place] 10-325 mg Tablet 1 tab PO TID PRN (Reason: Pain) 0RF ibuprofen 200 mg Tablet 600 - 800 mg PO Q6H PRN (Reason: Pain) 0RF tizanidine 4 mg tablet 4 mg PO BID PRN (Reason: Muscle Spasm) 0RF amlodipine 5 mg tablet 5 mg PO DAILY 0RF chlorthalidone 50 mg tablet 100 mg PO QAM 0RF levothyroxine 100 mcg tablet 100 mcg PO QAM 0RF pantoprazole 40 mg tablet,delayed release (DR/EC) 40 mg PO DAILY 0RF estradiol 2 mg tablet 2 mg PO DAILY 0RF albuterol sulfate 90 mcg/actuation HFA aerosol inhaler 1 puff inhalation Q6H PRN (Reason: Shortness Of Breath) 0RF lisinopril 40 mg tablet 40 mg PO DAILY 0RF cholecalciferol (vitamin D3) 1,250 mcg (50,000 unit) capsule 50,000 unit PO Q7D 0RF Rx Instructions: on saturday Voltaren Arthritis Pain 1 % gel 2 g topical QID PRN (Reason: Pain) 0RF Rx Instructions: apply to single elbow, wrist or hand; for hand includes palm/fingers/back of hand isosorbide mononitrate 30 mg tablet extended release 24 hr 30 mg PO DAILY Qty: 30 0RF aspirin 81 mg tablet,delayed release (DR/EC) 81 mg PO DAILY Qty: 30 0RF metoprolol succinate 100 mg tablet extended release 24 hr 100 mg PO DIRECTED 0RF Rx Instructions: Take 1/2 tab for high blood pressure Discharge Orders: Discharge ED (Routine); Ordered 08/07/21 Ordered By: Konrad Choi Referrals: VEGA Hopper, [facility] [Primary Care Provider] - Discharge Diet: Advance as tolerated Discharge Activity: Increase activity as tolerated Patient Instructions: Cellulitis (ED), Opioid Safety Activity Restrictions/Additional Instructions: Please take your antibiotics as instructed. Watch out for signs of skin changes/redness, mouth redeness or swelling, nausea/vomiting, diarrhea, blood in the urine or any new or concerning complaints. Come back if you have any significant reddening fever/chills, worsening pain, or any new or concerning complaints. Coding Level of Care Code ED Calender Let Off Helper for Chg Fwd Exam Comprehensive Documented by User: Konrad Choi MD 08/07/21 23:36 HPI - General Adult General: Chief complaint: Extremity Problem,Nontraumatic Stated complaint: ultrasound on lft leg Time Seen by Provider: 08/07/21 19:48 PFSH ED PFSH: Medical History Anemia Asthma Bacterial otitis media Breast cancer screening by mammogram CKD (chronic kidney disease) COPD (chronic obstructive pulmonary disease) DDD (degenerative disc disease) DVT (deep venous thrombosis) Edema Edema Essential hypertension Fatigue Fibromyalgia GERD (gastroesophageal reflux disease) Hyperlipidemia Left shoulder pain Lower respiratory infection Lower respiratory infection Lumbago Medication management Mixed stress and urge urinary incontinence Obesity Obesity, Class III, BMI 40-49.9 (morbid obesity) SAURAV (obstructive sleep apnea) Osteoarthritis Otitis media Pelvic pain in female Post-surgical hypothyroidism Psoriatic arthritis Recurrent UTI Right hip pain RLS (restless legs syndrome) Sinusitis Urinary incontinence Urinary incontinence Vitamin B12 deficiency anemia Vitamin D deficiency Yeast vaginitis Surgical History H/O thyroidectomy Hx of elbow surgery S/P carpal tunnel release S/P cholecystectomy S/P hip replacement S/P hysterectomy Family History Brother Cancer Father Cancer Other CAD (coronary artery disease) Diabetes Hyperlipidemia Hypertension Obesity Social History Smoking and tobacco status: never smoked Alcohol intake: former Adopted: No Caregiver/support person: No Lives independently: No Household members: spouse Marital status: Current occupational status: disabled Previous occupational history: FACTORY History of recent travel: No Current gender identity: Female Course Vital Signs: Vital signs: Vital Signs Temperature 98.7 F 08/07/21 22:28 Pulse Rate 70 08/08/21 00:02 Respiratory Rate 16 08/08/21 00:22 Blood Pressure 127/72 08/08/21 00:02 Pulse Oximetry 93 08/08/21 00:02 MDM - General Adult Medical Decision Making Patient presents here with cellulitis she was seen in the ER by hospitalist Dr. bradley who felt that her cellulitis can be treated outpatient as first I went and assessed patient she does have mild erythema to her ankle ultrasounds were negative white counts mildly elevated I did speak to her and she would like to go home I feel she is stable for discharge she got IV antibiotics in the ER will place her on Keflex and Bactrim at home the cellulitis is marked I informed if it worsens at all she is to return she understands agrees to plan. Lab Data : 08/07/21 21:47 08/07/21 21:47 Radiology Impressions Venous Duplex 08/07/21 19:34 IMPRESSION: No evidence of deep vein thrombosis, left lower extremity. Duplex Scan Lower Extremity Artery 08/07/21 19:35 IMPRESSION: 1. The study is limited by patient body habitus. 2. No evidence of hemodynamically significant arterial stenosis or arterial occlusion in the left lower extremity. Tibia/Fibula X-Ray 08/07/21 20:20
--- NOTE | 2021-08-07 20:39 | ED_ITS ---
HPI - General Adult General: Chief complaint: Extremity Problem,Nontraumatic Stated complaint: ultrasound on lft leg Time Seen by Provider: 08/07/21 19:48 History of Present Illness: Patient is a 66-year-old female with a history of asthma, COPD, CKD, prior DVT who presents the emergency room for evaluation of left leg pain and new progressive rash x1 day. Patient first noticed the rash and pain yesterday night around 8 PM. Since then, patient noticed the rash has progressively gotten worse and is now moving up her left posterior leg. Patient denies any fever or chills, recent travel to [facility] [place], recent trauma or fall or injuries. Patient denies any tick bite. No history of immunosuppression including transplant, diabetes, HIV, or on immunosuppresants. Patient has no other complaints including nausea/vomiting, diarrhea, diaphoresis, melena or hematochezia, or other complaints at this time Onset:8pm yesterday Duration:1 day Location:home Severity:moderate Associated symptoms: Deny chest pain, dyspnea, nausea, rash, palpitations or vomiting Review of Systems Const: Denies: fever(s) or chills Eyes: Denies: change in vision ENMT: Denies: mouth pain Card: Denies: chest pain or palpitations Resp: Denies: dyspnea or non-productive cough GI: Denies: abdominal pain, nausea, vomiting or diarrhea : Denies: dysuria Musc: Reports: extremity pain and other (+L leg pain and L foot/leg rash) Skin/Breast: Denies: rash or new lesions Neuro: Denies: weakness in extremities Psych: Reports: other (Normal mood) Ronan/Lymph: Denies: easy bruising PFS ED PFSH: Medical History Anemia Asthma Bacterial otitis media Breast cancer screening by mammogram CKD (chronic kidney disease) COPD (chronic obstructive pulmonary disease) DDD (degenerative disc disease) DVT (deep venous thrombosis) Edema Edema Essential hypertension Fatigue Fibromyalgia GERD (gastroesophageal reflux disease) Hyperlipidemia Left shoulder pain Lower respiratory infection Lower respiratory infection Lumbago Medication management Mixed stress and urge urinary incontinence Obesity Obesity, Class III, BMI 40-49.9 (morbid obesity) SAURAV (obstructive sleep apnea) Osteoarthritis Otitis media Pelvic pain in female Post-surgical hypothyroidism Psoriatic arthritis Recurrent UTI Right hip pain RLS (restless legs syndrome) Sinusitis Urinary incontinence Urinary incontinence Vitamin B12 deficiency anemia Vitamin D deficiency Yeast vaginitis Surgical History H/O thyroidectomy Hx of elbow surgery S/P carpal tunnel release S/P cholecystectomy S/P hip replacement S/P hysterectomy Family History Brother Cancer Father Cancer Other CAD (coronary artery disease) Diabetes Hyperlipidemia Hypertension Obesity Social History Smoking and tobacco status: never smoked Alcohol intake: former Adopted: No Caregiver/support person: No Lives independently: No Household members: spouse Marital status: Current occupational status: disabled Previous occupational history: FACTORY History of recent travel: No Current gender identity: Female Physical Exam Const: COMMON NORMALS: alert HENMT: COMMON NORMALS: atraumatic HEAD & SCALP: atraumatic MOUTH: moist mucous membranes not abnormal Eye: COMMON NORMALS: EOMs intact bilaterally and conjunctivae normal CONJUNCTIVA: Yes conjunctivae normal Neck/C-Spine: COMMON NORMALS: full ROM and supple Resp: COMMON NORMALS: normal respiratory effort and clear to auscultation bilaterally AUSCULTATION: clear to auscultation bilaterally Cardio: COMMON NORMALS: regular rate RATE: regular rate GI: COMMON NORMALS: Soft to palpation and non-tender PALPATION: Yes Soft to palpation Extremity: COMMON NORMALS: full ROM Neuro: SENSORIUM/ORIENTATION: Yes alert MOTOR EXAM: No Abnormal motor strength present and Other motor observations present (no focal motor deficits) Psych: COMMON NORMALS: speech normal SPEECH: Yes normal speech MOOD & AFFECT: Yes euthymic mood Skin: NARRATIVE SKIN EXAM: +erythematous rashes over the L ankle and L posteiror calf, 2+ DP/PT pulses on the left side, neurovascular exam intact on the affected extremity No crepitus or warmth to palpation over the LLE Course Vital Signs: Vital signs: Vital Signs Temperature 98.7 F 08/07/21 22:28 Pulse Rate 70 08/08/21 00:02 Respiratory Rate 16 08/08/21 00:22 Blood Pressure 127/72 08/08/21 00:02 Pulse Oximetry 93 08/08/21 00:02 [facility] - General Adult Medical Decision Making Patient is a 66-year-old female who presents the emergency room for left ankle pain swelling and bruises of the ankle. On physical exam, patient is noted to have mild erythema uptrending on the back of the left ankle to the left calf. No signs of crepitus or pain out of proportion to physical exam. Patient is noted to have a white count of 14.2. X-ray not show any gas pattern or crepitus. Bedside ultrasound showed edema likely consistent with cellulitis. Ultrasound duplex and arterial negative for any acute findings. On reassessment at 10:40 PM, patient is noted to have significant increase in erythema with warmth. Again, patient does not have any crepitus or pain out of proportion to suggest that this is necrotizing soft tissue infection. However worsening erythema since admisison, shared decision making for observation for IV antibiotics versus discharge with close follow-up. Patient tells me that he cannot be seen by Dr. Hopper tomorrow and patient elects to stay in the hospital for IV antibiotics. Patient received Zosyn and clindamycin. The outline of the erythema has been marked at 10:44 PM. Disposition: admission Lab Data : 08/07/21 21:47 08/07/21 21:47 Radiology Impressions Venous Duplex 08/07/21 19:34 IMPRESSION: No evidence of deep vein thrombosis, left lower extremity. Duplex Scan Lower Extremity Artery 08/07/21 19:35 IMPRESSION: 1. The study is limited by patient body habitus. 2. No evidence of hemodynamically significant arterial stenosis or arterial occlusion in the left lower extremity. Tibia/Fibula X-Ray 08/07/21 20:20 IMPRESSION: 1. Diffuse subcutaneous edema noted. 2. No fracture or other acute osseous abnormality. No findings of osteomyelitis. Laboratory Results WBC 14.2 10^3/uL (4.0-10.0) H 08/07/21 21:47 RBC 3.73 10^6/uL (4.1-5.3) L 08/07/21 21:47 Hgb 11.0 g/dL (11.5-15.3) L 08/07/21 21:47 Hct 35.4 % (37.0-47.0) L 08/07/21 21:47 MCV 94.9 fl (81-99) 08/07/21 21:47 MCH 29.5 pg (28.0-34.0) 08/07/21 21:47 MCHC 31.1 g/dL (30.0-36.0) 08/07/21 21:47 RDW 13.0 % (12.1-15.1) 08/07/21 21:47 Plt Count 334 10^3/cmm (130-400) 08/07/21 21:47 MPV 10.0 fL (7.4-10.4) 08/07/21 21:47 Neut % (Auto) 54.4 % 08/07/21 21:47 Lymph % (Auto) 35.6 % 08/07/21 21:47 [place] % (Auto) 5.7 % 08/07/21 21:47 Eos % (Auto) 3.5 % 08/07/21 21:47 Baso % (Auto) 0.4 % 08/07/21 21:47 Neut # (Auto) 7.73 10^3/uL (1.8-7.7) H 08/07/21 21:47 Lymph # (Auto) 5.1 10^3/uL (0.8-4.8) H 08/07/21 21:47 [place] # (Auto) 0.8 10^3/uL (0.2-0.9) 08/07/21 21:47 Eos # (Auto) 0.5 10^3/uL (0.0-0.8) 08/07/21 21:47 Baso # (Auto) 0.1 10^3/uL (0.0-0.1) 08/07/21 21:47 Nucleated RBC % (auto) 0 % 08/07/21 21:47 Nucleated RBCs # 0.0 /100WBC 08/07/21 21:47 Sodium 138 mmol/L (136-145) 08/07/21 21:47 Potassium 4.5 mmol/L (3.5-5.1) 08/07/21 21:47 Chloride 101 mmol/L (98-107) 08/07/21 21:47 Carbon Dioxide 26 mmol/L (22-29) 08/07/21 21:47 Anion Gap 15.5 (5-19) 08/07/21 21:47 BUN 15 mg/dL (8-23) 08/07/21 21:47 Creatinine 0.7 mg/dL (0.5-0.9) 08/07/21 21:47 GFR Calculation 83.5 mL/min (90-130) L 08/07/21 21:47 Glucose 88 mg/dL (65-115) 08/07/21 21:47 Calculated Osmolality 286 mOsm/kg (285-295) 08/07/21 21:47 Calcium 9.3 mg/dL (8.5-10.5) 08/07/21 21:47 C-Reactive Protein 55.2 mg/L (0.0-4.9) H 08/07/21 21:47 Imaging Data Other Imaging: Radiologist's impression: [address] [facility] [place] [address] XRay Report Signed Patient: Naida Atkins Unit #: [id number] : 1955 Age/Sex: 66 / F ADM Date: 08/07/21 Loc: ER Room/Bed: Attending Dr: Ordering Provider/Ordering MD: Na Francis MD Date of Service: 08/07/21 Procedure(s): XR tibia fibula LT 2V 32557 Accession Number(s): [id number] Report Number: [id number] PROCEDURE INFORMATION: Exam: XR Left Tibia and Fibula Exam date and time: 08/07/2021 9:18 PM Age: 66 years old Clinical indication: Pain; Ankle; Left; Additional info: Erythema TECHNIQUE: Imaging protocol: XR Left tibia and fibula. Views: 2 views. COMPARISON: CR XR foot LT 2V 70630 05/31/2020 11:53 AM FINDINGS: Bones/joints: No fracture or other acute osseous abnormality. Degenerative change of the knee joint. The ankle joint is grossly unremarkable. Soft tissues: diffuse subcutaneous edema noted. Punctate soft tissue calcifications are noted anteriorly, likely representing small dermal calcifications or small phleboliths. XR/XR tibia fibula LT 2V 75928 IMPRESSION: 1. Diffuse subcutaneous edema noted. 2. No fracture or other acute osseous abnormality. No findings of osteomyelitis. ? Dictated By: Pawan Gibbons MD Signed By: Pawan Gibbons MD Signed Date/Time: 08/07/212158 DD/ [address] [place] [address] Ultrasound Report Signed Patient: Naida Atkins Unit #: [id number] : 1955 Age/Sex: 66 / F ADM Date: 08/07/21 Loc: ER Room/Bed: Attending Dr: Ordering Provider/Ordering MD: Chance Muñoz NP Date of Service: 08/07/21 Procedure(s): [place] [address] Accession Number(s): [id number] Report Number: [id number] PROCEDURE INFORMATION: Exam: US Duplex Left Lower Extremity Arteries Or Arterial Bypass Grafts Exam date and time: 08/07/2021 8:36 PM Age: 66 years old Clinical indication: Pain; Other: Discoloration; Leg, lower and foot; Left; Additional info: Pain, discoloration ext TECHNIQUE: Imaging protocol: Left Real-time duplex scan of the arteries or arterial bypass grafts of the left lower extremity with 2-D no scale, color Doppler flow and spectral waveform analysis. Images documented and saved. COMPARISON: No relevant prior studies available. FINDINGS: Limitations: The study is limited by patient body habitus. Left common femoral artery: No occlusion or significant stenosis. Triphasic waveform. Left superficial femoral artery: No occlusion or significant stenosis. Triphasic waveform. Left popliteal artery: No occlusion or significant stenosis. Triphasic waveform. Left calf/foot arteries: No occlusion or significant stenosis in the visualized arteries. Biphasic waveforms. Dorsalis pedis artery [place] patent. US/[place] [address] IMPRESSION: 1. The study is limited by patient body habitus. 2. No evidence of hemodynamically significant arterial stenosis or arterial occlusion in the left lower extremity. ? Dictated By: Pawan Gibbons MD Signed By: Pawan Gibbons MD Signed Date/Time: 08/07/212154 DD/ [address] [address] Ultrasound Report Signed Patient: Naida Atkins Unit #: [id number] : 1955 Age/Sex: 66 / F ADM Date: 08/07/21 Loc: ER Room/Bed: Attending Dr: Ordering Provider/Ordering MD: Konrad Choi MD Date of Service: 08/07/21 Procedure(s): [place] [address] Accession Number(s): [id number] Report Number: [id number] PROCEDURE INFORMATION: Exam: US Duplex Left Lower Extremity Veins, Limited Exam date and time: 08/07/2021 8:14 PM Age: 66 years old Clinical indication: Swelling (edema) of limb; Lower extremity, left; Additional info: Left leg swelling TECHNIQUE: Imaging protocol: Real-time Duplex ultrasound of the Left Lower Extremity with 2-D no scale, color Doppler flow and spectral waveform analysis with image documentation. Limited exam focused on the left lower extremity veins. COMPARISON: US transvaginal [id number] 02/07/2021 2:32 PM FINDINGS: Left deep veins: Unremarkable. The common femoral, femoral, proximal profunda femoral and popliteal veins are patent without thrombus. Normal Doppler waveforms. Normal compressibility and/or augmentation response.? Left superficial veins: Unremarkable. Saphenofemoral junction is patent without thrombus. Soft tissues: Unremarkable. US/[place] [address] IMPRESSION: No evidence of deep vein thrombosis, left lower extremity. ? Dictated By: Pawan Gibbons MD Signed By: Pawan Gibbons MD Signed Date/Time: 08/07/212149 DD/ 13 Discharge Plan Discharge Patient Disposition: Home Clinical Impression: Cellulitis Condition: Stable Prescriptions: New Bactrim DS 800-160 mg tablet 1 tab PO BID 10 Days Qty: 20 0RF cephalexin 500 mg capsule 500 mg PO BID 10 Days Qty: 20 0RF Diflucan 150 mg tablet 150 mg PO DAILY Qty: 1 0RF Rx Instructions: administer on day 1 of therapy No Action Tremfya 100 mg/mL auto-injector 100 mg SUBCUT .COMPLEX Qty: 1 5RF Rx Instructions: 100 mg SUBCUT at weeks 0, 4, and then every 8 weeks thereafter.; nitroglycerin 0.4 mg tablet, sublingual 0.4 mg sublingual Q5M PRN (Reason: chest pain) Qty: 25 3RF Rx Instructions: do not exceed 3 doses per episode betamethasone acet,sod phos 6 mg/mL suspension 6 mg IM ONCE Qty: 1 0RF (DME) CPAP See Rx Instructions .Route .MEDSUPPLY Qty: 1 0RF Rx Instructions: As directed hydroxyzine HCl 25 mg tablet 25 mg PO TID PRN (Reason: itching) 15 Days Qty: 25 0RF oxybutynin chloride 15 mg tablet extended release 24 hr 30 mg PO DAILY 30 Days Qty: 60 2RF pramipexole 0.75 mg tablet See Rx Instructions .ROUTE .COMPLEX Qty: 30 2RF Dose Instruction: TAKE 1 TABLET BY MOUTH EVERY DAY Rx Instructions: TAKE 1 TABLET BY MOUTH EVERY DAY fluoxetine 40 mg capsule See Rx Instructions .ROUTE .COMPLEX Qty: 30 2RF Dose Instruction: TAKE ONE CAPSULE BY MOUTH EVERY DAY Rx Instructions: TAKE ONE CAPSULE BY MOUTH EVERY DAY [place] 10-325 mg Tablet 1 tab PO TID PRN (Reason: Pain) 0RF ibuprofen 200 mg Tablet 600 - 800 mg PO Q6H PRN (Reason: Pain) 0RF tizanidine 4 mg tablet 4 mg PO BID PRN (Reason: Muscle Spasm) 0RF amlodipine 5 mg tablet 5 mg PO DAILY 0RF chlorthalidone 50 mg tablet 100 mg PO QAM 0RF levothyroxine 100 mcg tablet 100 mcg PO QAM 0RF pantoprazole 40 mg tablet,delayed release (DR/EC) 40 mg PO DAILY 0RF estradiol 2 mg tablet 2 mg PO DAILY 0RF albuterol sulfate 90 mcg/actuation HFA aerosol inhaler 1 puff inhalation Q6H PRN (Reason: Shortness Of Breath) 0RF lisinopril 40 mg tablet 40 mg PO DAILY 0RF cholecalciferol (vitamin D3) 1,250 mcg (50,000 unit) capsule 50,000 unit PO Q7D 0RF Rx Instructions: on saturday Voltaren Arthritis Pain 1 % gel 2 g topical QID PRN (Reason: Pain) 0RF Rx Instructions: apply to single elbow, wrist or hand; for hand includes palm/fingers/back of hand isosorbide mononitrate 30 mg tablet extended release 24 hr 30 mg PO DAILY Qty: 30 0RF aspirin 81 mg tablet,delayed release (DR/EC) 81 mg PO DAILY Qty: 30 0RF metoprolol succinate 100 mg tablet extended release 24 hr 100 mg PO DIRECTED 0RF Rx Instructions: Take 1/2 tab for high blood pressure Discharge Orders: Discharge ED (Routine); Ordered 08/07/21 Ordered By: Konrad Choi Referrals: VEGA Hopper, [employer] REPA[employer] HELPER [Primary Care Provider] - Discharge Diet: Advance as tolerated Discharge Activity: Increase activity as tolerated Patient Instructions: Cellulitis (ED), Opioid Safety Activity Restrictions/Additional Instructions: Please take your antibiotics as instructed. Watch out for signs of skin changes/redness, mouth redeness or swelling, nausea/vomiting, diarrhea, blood in the urine or any new or concerning complaints. Come back if you have any significant reddening fever/chills, worsening pain, or any new or concerning complaints. Coding Level of Care Code ED Manager Managed Care for Chg Fwd Exam Comprehensive
[2021-08-07 21:58] LABS: Basophils # 0.1 10^3/uL (0.0-0.1); Basophils % 0.4 %; Eosinophils # 0.5 10^3/uL (0.0-0.8); Eosinophils % 3.5 %; Hematocrit 35.4 % (37.0-47.0); Lymphocytes # 5.1 10^3/uL (0.8-4.8); Lymphocytes % 35.6 %; Mean Corpuscular HGB Conc 31.1 g/dL (30.0-36.0); Mean Corpuscular Hemoglobin 29.5 pg (28.0-34.0); Mean Corpuscular Volume 94.9 fl (81-99); Monocytes # 0.8 10^3/uL (0.2-0.9); Monocytes % 5.7 %; Neutrophils # 7.73 10^3/uL (1.8-7.7); Neutrophils % 54.4 %; Nucleated Red Blood Cells % 0 %; Platelet Count 334 10^3/cmm (130-400); Red Blood Count 3.73 10^6/uL (4.1-5.3); White Blood Count 14.2 10^3/uL (4.0-10.0)
[2021-08-07 21:59] VITALS: BP 121/83; PULSE 80; RESP 16; O2SAT 95
[2021-08-07 22:22] LABS: Blood Urea Nitrogen 15 mg/dL (8-23); C Reactive Protein 55.2 mg/L (0.0-4.9); Calcium 9.3 mg/dL (8.5-10.5); Carbon Dioxide 26 mmol/L (22-29); Chloride 101 mmol/L (98-107); Creatinine Clr Calc Pharmacy 87.2694; Glomerular Filtration Rate 83.5 mL/min (90-130); Glucose 88 mg/dL (65-115); Osmolality Calculated 286 mOsm/kg (285-295); Sodium 138 mmol/L (136-145)
[2021-08-07 22:23] LABS: Anion Gap 15.5 (5-19); Potassium 4.5 mmol/L (3.5-5.1)
[2021-08-07 22:28] VITALS: BP 117/68; PULSE 73; RESP 16; TEMP 37.1; O2SAT 93
[2021-08-07] MEDS: piperacillin-tazobactam 4.5 GM in sodium chloride 0.9% (plus) 50 ML IV (22:53)
--- NOTE | 2021-08-07 22:54 | PC.NURSE ---
Redness/bruising outline with pen and dated. Will continue to monitor.
--- NOTE | 2021-08-07 23:04 | PC.NURSE ---
Report given to MELVINA Acharya.
--- NOTE | 2021-08-07 23:32 | PM.CONSULT ---
Providers/Reason For Consult Consulting Physician/Specialty*: Hospital medicine Reason for Consult*: Cellulitis Primary Care Provider: MARK Green History of Present Illness History of Present Illness The patient is a 68-year-old female who presented to [place] of left leg swelling which started approximate 4 days prior to hospitalization. On the day of presentation to the emergency department she states it has worsened. She denies any trauma or insect bites or any other inciting factors. She denies drainage. She states that this been red and slightly tender. She denies fever, rigors, nausea, vomiting, cough, wheeze. She presents for further evaluation Review of Systems General: Reports: 10 or more systems reviewed and unremarkable except in HPI and below Medications/Allergies Home Medications Medication Instructions Recorded Confirmed Last Taken Type CPAP #1 ea 10/05/20 07/26/21 Unknown Rx hydroxyzine HCl 25 mg tablet 25 mg PO TID PRN 15 Days #25 tab 03/09/21 07/26/21 Unknown Rx oxybutynin chloride 15 mg 30 mg PO DAILY 30 Days #60 tab 05/25/21 07/26/21 06/25/21 Rx tablet,extended release 24 hr guselkumab 100 mg/mL subcutaneous 100 mg SUBCUT .COMPLEX #1 ml 06/02/21 07/26/21 Unknown Rx auto-injector (Tremfya) albuterol sulfate 90 mcg/actuation 1 puff INHALATION Q6H PRN 06/26/21 07/26/21 Unknown History aerosol inhaler amlodipine 5 mg tablet 5 mg PO DAILY 06/26/21 07/26/21 06/25/21 History aspirin 81 mg tablet,delayed 81 mg PO DAILY #30 tab 06/26/21 07/26/21 Unknown Rx release chlorthalidone 50 mg tablet 100 mg PO QAM 06/26/21 07/26/21 06/25/21 History cholecalciferol (vitamin D3) 1,250 50,000 unit PO Q7D 06/26/21 07/26/21 06/19/21 History mcg (50,000 unit) capsule diclofenac sodium 1 % topical gel 2 g TOPICAL QID PRN 06/26/21 07/26/21 Unknown History (Voltaren Arthritis Pain) estradiol 2 mg tablet 2 mg PO DAILY 06/26/21 07/26/21 06/25/21 History hydrocodone 10 mg-acetaminophen 1 tab PO TID PRN 06/26/21 07/26/21 Unknown History 325 mg tablet ibuprofen 200 mg tablet 600 - 800 mg PO Q6H PRN 06/26/21 07/26/21 Unknown History isosorbide mononitrate 30 mg 30 mg PO DAILY #30 tab 06/26/21 07/26/21 Unknown Rx tablet,extended release 24 hr levothyroxine 100 mcg tablet 100 mcg PO QAM 06/26/21 07/26/21 06/25/21 History lisinopril 40 mg tablet 40 mg PO DAILY 06/26/21 07/26/21 06/22/21 History pantoprazole 40 mg tablet,delayed 40 mg PO DAILY 06/26/21 07/26/21 06/25/21 History release tizanidine 4 mg tablet 4 mg PO BID PRN 06/26/21 07/26/21 Unknown History metoprolol succinate 100 mg 100 mg PO DIRECTED tab 07/21/21 07/26/21 Unknown History tablet,extended release 24 hr nitroglycerin 0.4 mg sublingual 0.4 mg SUBLINGUAL Q5M PRN #25 tab 07/21/21 07/26/21 Unknown Rx tablet fluoxetine 40 mg capsule See Rx Instructions .ROUTE 07/26/21 07/26/21 Unknown Rx .COMPLEX #30 capsule pramipexole 0.75 mg tablet See Rx Instructions .ROUTE 07/26/21 07/26/21 Unknown Rx .COMPLEX #30 tab cephalexin 500 mg capsule 500 mg PO BID 10 Days #20 cap 08/07/21 Unknown Rx sulfamethoxazole 800 1 tab PO BID 10 Days #20 tab 08/07/21 Unknown Rx mg-trimethoprim 160 mg tablet (Bactrim DS) Allergies Allergy/AdvReac Type Severity Reaction Status Date / Time guaifenesin [From Mucinex] Allergy rapid pulse Verified 07/26/21 13:22 Iodinated Contrast Media Allergy edema Verified 07/26/21 13:22 shellfish derived Allergy edema Verified 07/26/21 13:22 pregabalin [From Lyrica] AdvReac Intermediate made her Verified 07/26/21 13:22 very sleepy/GAINED WEIGHT PFSH Acute PFSH: Medical History Anemia Asthma Bacterial otitis media Breast cancer screening by mammogram CKD (chronic kidney disease) COPD (chronic obstructive pulmonary disease) DDD (degenerative disc disease) DVT (deep venous thrombosis) Edema Edema Essential hypertension Fatigue Fibromyalgia GERD (gastroesophageal reflux disease) Hyperlipidemia Left shoulder pain Lower respiratory infection Lower respiratory infection Lumbago Medication management Mixed stress and urge urinary incontinence Obesity Obesity, Class III, BMI 40-49.9 (morbid obesity) SAURAV (obstructive sleep apnea) Osteoarthritis Otitis media Pelvic pain in female Post-surgical hypothyroidism Psoriatic arthritis Recurrent UTI Right hip pain RLS (restless legs syndrome) Sinusitis Urinary incontinence Urinary incontinence Vitamin B12 deficiency anemia Vitamin D deficiency Yeast vaginitis Surgical History H/O thyroidectomy Hx of elbow surgery S/P carpal tunnel release S/P cholecystectomy S/P hip replacement S/P hysterectomy Family History Brother Cancer Father Cancer Other CAD (coronary artery disease) Diabetes Hyperlipidemia Hypertension Obesity Social History Smoking and tobacco status: never smoked Alcohol intake: former Adopted: No Caregiver/support person: No Lives independently: No Household members: spouse Marital status: Current occupational status: disabled Previous occupational history: FACTORY History of recent travel: No Current gender identity: Female Vitals/I&O/Wt Last Vital Signs Temp 98.7 F 08/07/21 22:28 Pulse 73 08/07/21 22:28 Resp 16 08/07/21 22:28 BP 117/68 08/07/21 22:28 Pulse Ox 93 08/07/21 22:28 Weight last 48 hrs Weight 117.027 kg Physical Exam Const: COMMON NORMALS: no acute distress, average body habitus, patient oriented x3, no limitations, healthy appearing, alert and well nourished GENERAL APPEARANCE: cooperative HENMT: COMMON NORMALS: normocephalic, atraumatic, hearing grossly normal bilaterally, external ears normal, EAC's normal, TM's normal bilaterally, Normal external nose present, Normal nasal mucous membranes and turbinates present, moist oral mucous membranes, oropharynx normal, dentition normal and gingiva normal HEAD & SCALP: normocephalic and atraumatic FACE & SINUS: normal facial exam NOSE: Normal external nose present and Normal nasal mucous membranes and turbinates present EXTERNAL EAR: Yes external ears normal EXTERNAL AUDITORY CANAL: EAC's normal TYMPANIC MEMBRANE: TM's normal bilaterally MOUTH: Normal oral and palatal mucosa present Eye: COMMON NORMALS: Equal, round and reactive pupils present, EOMs intact bilaterally, conjunctivae normal, no scleral icterus, no papilledema, normal visual woods by confrontation and fundi normal bilaterally GENERAL EYE: appearance normal, both eyes and all related structures and normal light reflex VISUAL ACUITY: Yes acuity normal VISUAL WOODS: Yes peripheral vision loss ALIGNMENT: Yes alignment normal CONJUNCTIVA: Yes conjunctivae normal PUPIL: Yes Equal, round and reactive pupils present EOM: Yes EOM abnormal DIRECT OPHTHALMOSCOPY: Yes normal light reflex, Yes no papilledema and Yes fundi normal bilaterally Neck/C-Spine: COMMON NORMALS: full ROM, no lymphadenopathy, supple, no meningeal signs, no JVD, Thyroid normal and No carotid bruits THYROID: Thyroid normal CERVICAL SPINE: Yes cervical ROM normal Chest: COMMONS NORMALS: normal inspection of the chest, normal palpation of entire chest wall, normal inspection of the breasts and normal palpation of the breasts Resp: COMMON NORMALS: normal respiratory effort, No retractions, No use of accessory muscles, clear to auscultation bilaterally and percussion normal AUSCULTATION: clear to auscultation bilaterally PERCUSSION: percussion normal Cardio: COMMON NORMALS: no JVD, regular rate, regular rhythm, S1 normal heart sound present and Peripheral pulses 2+ throughout PALPATION: normal PMI RATE: regular rate RHYTHM: regular rhythm HEART SOUNDS: S1 normal heart sound present PERIPHERAL PULSES: Peripheral pulses 2+ throughout GI: COMMON NORMALS: Normal to inspection, nondistended, normoactive bowel sounds present, Soft to palpation, non-tender, No hepatosplenomegaly present, no masses and no bruits PALPATION: Yes Soft to palpation and Yes No hepatosplenomegaly present : COMMON NORMALS: Yes no CVA tenderness, Yes normal external appearance, Yes normal appearance of the vagina, Yes normal appearance of the cervix, Yes normal bimanual exam, Yes No adnexal tenderness and Yes no masses BLADDER/KIDNEY EXAM: Yes no CVA tenderness BIMANUAL EXAM - VAGINA & UTERUS: Yes normal bimanual exam Back/Pelvis: COMMON NORMALS: no CVA tenderness THORACIC SPINE/UPPER BACK: Yes normal to inspection LUMBAR SPINE/LOWER BACK: Yes normal to inspection SACROILIAC JOINTS: Yes SI joints normal Extremity: COMMON NORMALS: normal to inspection, full ROM, capillary refill normal, no joint enlargement, no clubbing, cyanosis or edema, no calf tenderness and no pedal edema GENERAL: Yes normal exam except as noted Neuro: COMMON NORMALS: patient oriented x3 SENSORIUM/ORIENTATION: Yes alert MENINGEAL SIGNS: Yes no meningeal signs CRANIAL NERVES: Yes CN normal except as noted DEEP TENDON REFLEXES: Right triceps reflex intensity grade: 2+, Left triceps reflex intensity grade: 2+, Rt Biceps (C5, C6): 2+, Left biceps reflex intensity grade: 2+, Right brachioradialis reflex intensity grade: 2+, Left brachioradialis reflex intensity grade: 2+, Right patellar reflex intensity grade: 2+, Left patellar reflex intensity grade: 2+, Right ankle reflex intensity grade: 2+ and Left ankle reflex intensity grade: 2+ PUPIL EXAM: Normal pupillary reactivity/response: bilateral, Dilated: bilateral, Pinpoint: bilateral, Mid position: bilateral, Sluggish: bilateral and Fixed/non-reactive: bilateral Psych: COMMON NORMALS: mental status grossly normal, Normal thought process present, cooperative, normal affect, speech normal, activity/motor behavior normal, denies hallucinations, denies homicidal ideation and denies suicidal ideation SPEECH: Yes normal speech THOUGHT PROCESS: Normal thought process present Data : 08/07/21 21:47 08/07/21 21:47 Micro: Microbiology 08/07/21 21:52 Blood Culture - Preliminary Blood SPECIMEN COLLECTED 08/07/21 21:47 Blood Culture - Preliminary Blood SPECIMEN COLLECTED A&P Assessment and plan (1) Cellulitis: Status: Acute Plan Left leg cellulitis. At worst, this is minor. I have examined the staff discussed case with the emergency department physician and have and I have advised him that the patient does not require hospitalization based on her symptomatology, the appearance of her skin, and minimal leukocytosis. I recommended outpatient treatment with oral antibiotic History of vitamin B12 deficiency Restless leg syndrome Overactive bladder Anxiety History of thyroidectomy, is with subsequent hypothyroidism Depression Chronic pain Muscle spasm Anemia COPD GERD Hyperlipidemia Hypertension Obesity. The patient becomes regarding lifestyle modification History of vitamin D deficiency Documented history of DVT however the patient is unaware of this Radha arthritis Psoriatic arthritis Fibromyalgia Peripheral vascular disease Start of sleep apnea. CPAP/BiPAP: Okay to use home device and/or pressure when sleeping Consult Attestations Medical Necessity Statement: This consultation is medically necessary as witnessed by composition of this report Coding Level of Care Code Acute Movie Machine Operator for Kalee Trammell Diagnoses Cellulitis L03.90
[2021-08-07] MEDS: clindamycin 600 MG/50 ML PREMIX 100 MG IV (23:45)
[2021-08-08 00:02] VITALS: BP 127/72; PULSE 70; RESP 18; O2SAT 93
[2021-08-08 00:22] VITALS: RESP 16
== END 2021-08-08 00:22 | disposition home or self-care (01) ==
PROVIDERS: Emergency Medicine; Emergency Provider Emergency Medicine; PCP Nurse Practitioner Family
DX: L03.116 Cellulitis of left lower limb (principal); M79.605 Pain in left leg; J44.9 Chronic obstructive pulmonary disease, unspecified; N18.9 Chronic kidney disease, unspecified; Z86.718 Personal history of other venous thrombosis and embolism; I12.9 Hypertensive chronic kidney disease with stage 1 through stage 4 chronic kidney disease, or unspecified chronic kidney disease
CPT/HCPCS: 73590; 80048; 85025; 86140; 87040; 93926; 93971; 96365; 96367; 99284; J2543; J3490

== ENCOUNTER 2021-08-17 13:06 | Outpatient (CLI) | payer MEDICARE, OTHER, SELFPAY ==
--- NOTE | 2021-08-17 13:30 | USCV_ITS ---
Naida Atkins Age: 66 Gender: F : 1955 Exam Date: 08/17/2021 13:18 Ordering Phys: Pasha Sol M.D ([email or web address]) Technologist: LNACE [place] [facility] [place]: SOB, chest pain BP: 117 / 68 HR: 81 Rhythm: Sinus Technical Quality: Technically difficult study MEASUREMENTS (Male / Female) Normal Values 2D ECHO LV Diastolic Diameter PLAX 4.1 cm 4.2 - 5.9 / 3.9 - 5.3 cm LV Systolic Diameter PLAX 2.6 cm IVS Diastolic Thickness 0.8 cm 0.6 - 1.0 / 0.6 - 0.9 cm IVS Systolic Thickness 1.1 cm LVPW Diastolic Thickness 1.0 cm 0.6 - 1.0 / 0.6 - 0.9 cm LVPW Systolic Thickness 1.1 cm RV Chamber Size 1.7 cm LVOT Diameter 2.0 cm LV Ejection Fraction 2D Teich 67.4 % LA Diameter 2.6 cm LA Width 2.9 cm LA Height 4.4 cm RA Width 3.1 cm RA Height 3.8 cm Aorta at Sinotubular Diameter 2.6 cm M-MODE Aortic Annulus Diameter 2.9 cm LA Ao Ratio MM 0.9 MV E Point Septal Separation 0.5 cm DOPPLER AV Peak Velocity 106.0 cm/s LVOT Peak Velocity 83.0 cm/s AV Area Cont Eq vti 2.9 cm squared AV Area Cont Eq pk 2.6 cm squared MV Area PHT 3.7 cm squared Mitral E to A Ratio 0.6 MV E' Velocity 28.5 cm/s Mitral E to MV E' Ratio 4.6 Mitral E to LV E' Lateral Ratio 4.5 Mitral E to LV E' Septal Ratio 4.9 TR Peak Velocity 255.3 cm/s TR Peak Gradient 26.1 mmHg TV Peak E Velocity 52.0 cm/s Right Atrial Pressure 8.0 mmHg Pulmonary Artery Systolic Pressu 34.1 mmHg PV Peak Velocity 136.0 cm/s RV Acceleration Time 0.1 s RV Ejection Time 0.3 s RV AcT/ET 0.4 FINDINGS Left Ventricle Normal left ventricular size. LV systolic function is normal with EF of 55-60%. No regional wall motion abnormalities. Grade 1 diastolic dysfunction. Right Ventricle Garossly normal Right Atrium The right atrium is normal in size. Left Atrium The left atrium is normal in size. Mitral Valve Mild mitral annular calcification without significant stenosis or prolapse. There is no mitral regurgitation. Aortic Valve Not well visualized. No significant sclerosis or stenosis. There is no aortic regurgitation. Tricuspid Valve Grossly normal without significant stenosis or regurgitation. Pulmonary artery systolic pressure is normal. Pulmonic Valve Not well visualized Pericardium Normal pericardium without effusion. Aorta Normal ascending aorta dimension. CONCLUSIONS Technically limited quality echocardiogram because of poor ultrasonic windows LV systolic function is normal with EF of 55-60% Grade 1 diastolic dysfunction Mild mitral annular calcification Valvular structures are not well visualized but no gross abnormalities No comparison studies are available Pasha Sol MD (Electronically Signed) Final Date: 20 August 2021 10:42 S
== END 2021-08-17 13:07 | disposition home or self-care (01) ==
LOC: RAD 13:08
PROVIDERS: PCP Nurse Practitioner Family; Visit Provider Internal Medicine
DX: R06.02 Shortness of breath (principal); R07.9 Chest pain, unspecified; I34.8 Other nonrheumatic mitral valve disorders
CPT/HCPCS: 93306

== ENCOUNTER → 2021-08-30 14:35 | Outpatient (BNVA) | payer MEDICARE, OTHER, SELFPAY | PROVIDERS: PCP Nurse Practitioner Family; Visit Provider Internal Medicine | DX: L40.50 Arthropathic psoriasis, unspecified (principal); Z79.899 Other long term (current) drug therapy; F17.210 Nicotine dependence, cigarettes, uncomplicated | CPT/HCPCS: 99214 ==

== ENCOUNTER → 2021-09-08 11:08 | Outpatient (BNVA) | payer MEDICARE, OTHER, SELFPAY | PROVIDERS: PCP Nurse Practitioner; Visit Provider Otolaryngology | DX: M54.2 Cervicalgia (principal); R22.1 Localized swelling, mass and lump, neck; F17.210 Nicotine dependence, cigarettes, uncomplicated; Z90.89 Acquired absence of other organs | CPT/HCPCS: 99203 ==

== ENCOUNTER 2021-10-06 12:36 | Outpatient (CLI) | payer MEDICARE, OTHER, SELFPAY ==
--- NOTE | 2021-10-06 12:30 | CT_ITS ---
WS: [id number] CT NECK TECHNIQUE: Contrast-enhanced CT of the neck with coronal and sagittal reformatted images. CLINICAL INFORMATION: Swelling to right side of neck. COMPARISON: None. DLP: 337.[address] scans at [facility] use at least one of these dose optimization techniques: automated e xposure control; mA and/or kV adjustment per patient size (includes targeted exams where dose is matc hed to clinical indication); or iterative reconstruction. FINDINGS: No evidence of cystic or solid RIGHT neck mass. Mastoid air cells well aerated. Paranasal sinuses well aerated. Parotid glands are normal. Normal sub mandibular glands. Normal parapharyngeal fat. Normal posterior nasopharynx. No evidence of supraglott ic or glottic mass. Subglottic airway is patent. Ballooning of the RIGHT laryngeal ventricle and piri form sinus with rotation RIGHT arytenoid suspicious for vocal cord paralysis. Medial displacement of the RIGHT vocal cord. Retropharyngeal course to both cervical ICAs. Prior postoperative changes RIGHT thyroidectomy. Calcified granulomas in the lung apices. Straighteni ng of the normal cervical lordosis. Slight anterolisthesis C3 on C4. Disc space narrowing cervical sp ine at C4-C7. Grade 1 anterolisthesis C7 on T1. Mild central canal stenosis in the mid cervical spine . Small lipoma partially visualized along the anterior falx measuring 6 mm. Intracranial contents other bryant normal for age partially visualized. CT/CT neck w con* [id number] IMPRESSION: 1. No cervical lymphadenopathy. 2. No evidence of RIGHT neck mass. 3. Prior postoperative changes RIGHT thyroidectomy. 4. No evidence of supraglottic or glottic mass. 5. Ballooning of the RIGHT laryngeal ventricle and piriform sinus suspicious f or RIGHT vocal cord paralysis. Recommend further evaluation with endoscopy. 6. Paranasal sinuses and mastoid air cells are well aerated. 7. Moderate spondylitic changes cervical spine. .
== END 2021-10-06 12:37 | disposition home or self-care (01) ==
LOC: RAD 12:40
PROVIDERS: PCP Nurse Practitioner; Visit Provider Otolaryngology
DX: R22.1 Localized swelling, mass and lump, neck (principal); M54.2 Cervicalgia
CPT/HCPCS: 70491; Q9967

== ENCOUNTER → 2021-11-15 15:28 | Outpatient (BNVA) | payer MEDICARE, OTHER, SELFPAY | PROVIDERS: PCP Nurse Practitioner; Visit Provider Internal Medicine | DX: L40.50 Arthropathic psoriasis, unspecified (principal); M19.90 Unspecified osteoarthritis, unspecified site; Z96.651 Presence of right artificial knee joint | CPT/HCPCS: 99214 ==

== ENCOUNTER → 2022-02-23 09:58 | Outpatient (BNVA) | payer MEDICARE, OTHER, SELFPAY | PROVIDERS: PCP Nurse Practitioner; Visit Provider Nurse Practitioner | DX: N39.0 Urinary tract infection, site not specified (principal) | CPT/HCPCS: 81000 ==

== ENCOUNTER 2022-07-16 10:34 | Outpatient (CLI) | payer MEDICARE, OTHER, SELFPAY ==
--- NOTE | 2022-07-16 10:43 | MM_ITS ---
WS: [id number] BILATERAL SCREENING DIGITAL TOMOSYNTHESIS MAMMOGRAM WITH CAD HISTORY: SCREENING COMPARISON: 05/08/2021, 02/01/2020, 01/30/2019 Bilateral CC and MLO views with tomosynthesis and synthetic mammography submitted. Computer aided det ection analyzed. Breast composition: There are scattered areas of fibroglandular density. No suspicious masses, microc alcifications or architectural distortion. Bilateral asymmetries within each breast are stable over m tiple prior years. MM/[place] [id number] IMPRESSION: BI-RADS: 2-Benign FOLLOW UP: 1 Year Follow-up
== END 2022-07-16 10:35 | disposition home or self-care (01) ==
LOC: RAD 10:35
PROVIDERS: PCP Nurse Practitioner; Visit Provider Nurse Practitioner
DX: Z12.31 Encounter for screening mammogram for malignant neoplasm of breast (principal)
CPT/HCPCS: 77063; 77067

== ENCOUNTER → 2022-08-16 13:25 | Outpatient (BNVA) | payer MEDICARE, OTHER, SELFPAY | PROVIDERS: PCP Nurse Practitioner; Visit Provider Internal Medicine | DX: L40.50 Arthropathic psoriasis, unspecified (principal); W19.XXXA Unspecified fall, initial encounter; M19.90 Unspecified osteoarthritis, unspecified site | CPT/HCPCS: 73562; 99214 ==

== ENCOUNTER 2022-11-04 16:08 | Emergency (ER) | payer MEDICARE, OTHER, SELFPAY ==
[2022-11-04 16:14] VITALS: BP 150/74; PULSE 57; RESP 22; TEMP 37.4; O2SAT 94; BMI 43.2
--- NOTE | 2022-11-04 16:19 | XRR_ITS ---
PROCEDURE INFORMATION: Exam: XR Chest Exam date and time: 11/04/2022 4:57 PM Age: 67 years old Clinical indication: Shortness of breath; Additional info: SOB TECHNIQUE: Imaging protocol: Radiologic exam of the chest. Views: 1 view. COMPARISON: CR XR chest 1V portable [id number] 06/26/2021 10:15 AM FINDINGS: Lungs: There are pulmonary parenchymal calcifications consistent with remote granulomatous organism exposure. No consolidation. Pleural spaces: Unremarkable. No pleural effusion. No pneumothorax. Heart/Mediastinum: Unremarkable. No cardiomegaly. Bones/joints: Unremarkable. XR/XR chest 1V portable [id number] IMPRESSION: No evidence for acute cardiopulmonary disease.
--- NOTE | 2022-11-04 16:25 | W.ED.SOB ---
HPI - SOB/Dyspnea General: Chief Complaint: Shortness of Breath/Dyspnea Stated Complaint: SOB, Time Seen by Provider: 11/04/22 16:13 Source: patient Mode of arrival: ambulatory Limitations: no limitations History of Present Illness: HPI Narrative: 67-year-old female has a history of COPD states that she been having shortness of breath over the last 3 days she states she was seen by her PCP 2 days ago started on prednisone along with Levaquin. She states that she is had no improvement still feeling very short of breath and having wheezing states she has been doing scheduled breathing treatments her dyspnea gets much worse with exertion. She denies any chest pain she had some low-grade fevers. Associated symptoms: Reports extremity pain; Deny abdominal pain, chest pain, fever(s), nausea or vomiting Review of Systems Const: Denies: fever(s) or chills Eyes: Denies: eye discomfort ENMT: Denies: throat pain or dental pain Card: Denies: chest pain Resp: Reports: dyspnea and wheezing GI: Denies: abdominal pain, nausea, vomiting or diarrhea Musc: Reports: extremity pain; Denies: neck pain or back pain Skin/Breast: Denies: rash Neuro: Denies: headache(s) PFSH ED PFSH: Medical History Anemia Asthma Bacterial otitis media Breast cancer screening by mammogram CKD (chronic kidney disease) COPD (chronic obstructive pulmonary disease) DDD (degenerative disc disease) DVT (deep venous thrombosis) Edema Edema Essential hypertension Fatigue Fibromyalgia GERD (gastroesophageal reflux disease) Hyperlipidemia Left shoulder pain retirement (current) use of opiate analgesic Lower respiratory infection Lower respiratory infection Lumbago Medication management Mixed stress and urge urinary incontinence Obesity Obesity, Class III, BMI 40-49.9 (morbid obesity) SAURAV (obstructive sleep apnea) Osteoarthritis Otitis media Pain management contract signed Pelvic pain in female Post-surgical hypothyroidism Psoriatic arthritis Recurrent UTI Right hip pain RLS (restless legs syndrome) Sinusitis Urinary incontinence Urinary incontinence Vitamin B12 deficiency anemia Vitamin D deficiency Yeast vaginitis Surgical History H/O thyroidectomy Hx of elbow surgery S/P carpal tunnel release S/P cholecystectomy S/P hip replacement S/P hysterectomy Family History Brother Cancer Father Cancer Other CAD (coronary artery disease) Diabetes Hyperlipidemia Hypertension Obesity Social History Smoking and tobacco status: former smoker Alcohol intake: current Alcohol intake frequency: holidays/special occasions only Substance/Drug Use: never Adopted: No Caregiver/support person: No Lives independently: No Household members: spouse Marital status: Current occupational status: disabled Previous occupational history: FACTORY Current gender identity: Female Physical Exam Const: COMMON NORMALS: patient oriented x3 HENMT: COMMON NORMALS: normocephalic and atraumatic HEAD & SCALP: normocephalic and atraumatic Eye: COMMON NORMALS: conjunctivae normal CONJUNCTIVA: Yes conjunctivae normal Neck/C-Spine: COMMON NORMALS: full ROM and supple Chest: COMMONS NORMALS: normal inspection of the chest and normal palpation of entire chest wall Resp: COMMON NORMALS: No retractions and No use of accessory muscles AUSCULTATION: wheezes Cardio: COMMON NORMALS: regular rate, regular rhythm and No murmurs present (Cardio) RATE: regular rate RHYTHM: regular rhythm GI: COMMON NORMALS: Normal to inspection, nondistended, normoactive bowel sounds present, Soft to palpation, non-tender and no masses PALPATION: Yes Soft to palpation Extremity: COMMON NORMALS: normal to inspection and full ROM Neuro: COMMON NORMALS: patient oriented x3, moves all extremities and no focal motor deficits Psych: COMMON NORMALS: mental status grossly normal, Normal thought process present and cooperative THOUGHT PROCESS: Normal thought process present Skin: COMMON NORMALS: no rashes or lesions noted and no wounds GENERAL SKIN EXAM: no rashes or lesions noted Course Vital Signs: Vital signs: Vital Signs Temperature 99.3 F 11/04/22 16:14 Pulse Rate 59 L 11/04/22 16:45 Respiratory Rate 18 11/04/22 16:45 Blood Pressure 152/8 11/04/22 16:36 Pulse Oximetry 95 11/04/22 16:45 Oxygen Delivery Me thod Room Air 11/04/22 16:45 MDM - SOB/Dyspnea Medical Decision Making Patient presents here with dyspnea consistent with COPD exacerbation she feels much improved here after treatments and Decadron x-ray shows no pneumonia blood work is normal I did offer admission since she has been on outpatient treatment she states she would like to go home states she feels improved she is follow-up with PCP and return if worsening. Medical Records I reviewed the patient's medical records. Lab Data I reviewed the patient's lab results. 11/04/22 16:27 11/04/22 16:27 Labs/Radiology: Radiology Impressions Chest X-Ray 11/04/22 16:19 IMPRESSION: No evidence for acute cardiopulmonary disease. Laboratory Results WBC 12.5 10^3/uL (4.0-10.0) H 11/04/22 16:27 RBC 4.35 10^6/uL (4.1-5.3) 11/04/22 16:27 Hgb 12.3 g/dL (11.5-15.3) 11/04/22 16:27 Hct 38.0 % (37.0-47.0) 11/04/22 16:27 MCV 87.4 fl (81-99) 11/04/22 16:27 MCH 28.3 pg (28.0-34.0) 11/04/22 16:27 MCHC 32.4 g/dL (30.0-36.0) 11/04/22 16:27 RDW 15.8 % (12.1-15.1) H 11/04/22 16:27 Plt Count 285 10^3/cmm (130-400) 11/04/22 16:27 MPV 9.1 fL (7.4-10.4) 11/04/22 16:27 Neut % (Auto) 76.0 % 11/04/22 16:27 Lymph % (Auto) 18.1 % 11/04/22 16:27 Thomas % (Auto) 5.3 % 11/04/22 16:27 Eos % (Auto) 0.1 % 11/04/22 16:27 Baso % (Auto) 0.2 % 11/04/22 16:27 Neut # (Auto) 9.52 10^3/uL (1.8-7.7) H 11/04/22 16:27 Lymph # (Auto) 2.3 10^3/uL (0.8-4.8) 11/04/22 16:27 Thomas # (Auto) 0.7 10^3/uL (0.2-0.9) 11/04/22 16:27 Eos # (Auto) 0.0 10^3/uL (0.0-0.8) 11/04/22 16:27 Baso # (Auto) 0.0 10^3/uL (0.0-0.1) 11/04/22 16:27 Nucleated RBC % (auto) 0 % 11/04/22 16:27 Nucleated RBCs # 0.0 /100WBC 11/04/22 16:27 PT 12.90 SECONDS (12.1-14.9) 11/04/22 16:27 INR 0.95 (0.8-1.2) 11/04/22 16:27 Sodium 137 mmol/L (136-145) 11/04/22 16:27 Potassium 3.6 mmol/L (3.5-5.1) 11/04/22 16:27 Chloride 97 mmol/L (98-107) L 11/04/22 16:27 Carbon Dioxide 27 mmol/L (22-29) 11/04/22 16:27 Anion Gap 16.6 (5-19) 11/04/22 16:27 BUN 18 mg/dL (8-23) 11/04/22 16:27 Creatinine 0.7 mg/dL (0.5-0.9) 11/04/22 16:27 GFR Calculation 83.2 mL/min (90-130) L 11/04/22 16:27 Glucose 99 mg/dL (65-115) 11/04/22 16:27 Calculated Osmolality 286 mOsm/kg (285-295) 11/04/22 16:27 Calcium 8.6 mg/dL (8.5-10.5) 11/04/22 16:27 Total Bilirubin 0.2 mg/dL (0.15-1.2) 11/04/22 16:27 AST 10 U/L (0-32) 11/04/22 16:27 ALT 11 U/L (0-33) 11/04/22 16:27 Alkaline Phosphatase 99 U/L (35-105) 11/04/22 16:27 NT-Pro-B Natriuret Pep 579 pg/mL (0-125) H 11/04/22 16:27 Total Protein 7.7 g/dL (6.6-8.7) 11/04/22 16:27 Albumin 3.7 g/dL (3.5-5.2) 11/04/22 16:27 Globulin 4.0 g/dL (1.3-4.6) 11/04/22 16:27 SARS-CoV-2 Ag (Rapid) negative (Negative) 11/04/22 16:40 EKG Data EKG 1: I personally reviewed and interpreted this EKG as follows: EKG Interpretation Date: 11/04/22 EKG interpretation time: 16:45 Interpretation: sinus viraj hr [address] or t wave abnormalitiesqrs [address] or t wave abnormalities qrs 11 qtc 432 Discharge Plan Discharge Patient Disposition: Home Clinical Impression: Acute exacerbation of chronic obstructive airways disease Condition: Stable Prescriptions: No Action fluconazole [Diflucan] 150 mg tablet 150 mg PO Q3D Qty: 2 0RF betamethasone acet,sod phos 6 mg/mL suspension 6 mg IM ONCE Qty: 1 0RF Eliquis 2.5 mg tablet 2.5 mg PO BID ofloxacin 0.3 % drops 1 drp ophthalmic (eye) TID Qty: 5 0RF Xeljanz XR 11 mg tablet extended release 24 hr 11 mg PO DAILY Qty: 30 5RF prednisone 20 mg tablet 20 mg PO DAILY Qty: 5 0RF amoxicillin 875 mg tablet 875 mg PO BID Qty: 14 0RF (DME) CPAP See Rx Instructions .Route .MEDSUPPLY Qty: 1 0RF Rx Instructions: As directed hydroxyzine HCl 25 mg tablet 25 mg PO TID PRN (Reason: itching) 15 Days Qty: 25 0RF meloxicam 15 mg tablet 15 mg PO DAILY Qty: 30 0RF prednisone 20 mg tablet 20 mg PO DAILY Qty: 5 0RF levofloxacin 500 mg tablet 500 mg PO DAILY 7 Days Qty: 7 0RF albuterol sulfate 90 mcg/actuation HFA aerosol inhaler See Rx Instructions .ROUTE .COMPLEX Qty: 8.5 3RF Dose Instruction: USE 1 INHALATION BY MOUTH EVERY 6 HOURS NEEDED FOR SHORTNESS OF BREATH Rx Instructions: USE 1 INHALATION BY MOUTH EVERY 6 HOURS NEEDED FOR SHORTNESS OF BREATH metoprolol succinate 100 mg tablet extended release 24 hr 100 mg PO DAILY Qty: 90 1RF oxybutynin chloride 15 mg tablet extended release 24hr See Rx Instructions .ROUTE .COMPLEX Qty: 60 5RF Dose Instruction: TAKE 2 TABLETS BY MOUTH EVERY DAY FOR 30 DAYS Rx Instructions: TAKE 2 TABLETS BY MOUTH EVERY DAY FOR 30 DAYS estradiol 2 mg tablet See Rx Instructions .ROUTE .COMPLEX Qty: 30 5RF Dose Instruction: TAKE 1 TABLET BY MOUTH EVERY DAY Rx Instructions: TAKE 1 TABLET BY MOUTH EVERY DAY tizanidine 4 mg tablet See Rx Instructions .ROUTE .COMPLEX Qty: 60 5RF Dose Instruction: TAKE ONE TABLET BY MOUTH TWICE DAILY NEEDED FOR MUSCLE SPASTICITY Rx Instructions: TAKE ONE TABLET BY MOUTH TWICE DAILY NEEDED FOR MUSCLE SPASTICITY levothyroxine 100 mcg tablet See Rx Instructions .ROUTE .COMPLEX Qty: 30 5RF Dose Instruction: TAKE ONE TABLET BY MOUTH EVERY DAY Rx Instructions: TAKE ONE TABLET BY MOUTH EVERY DAY fluoxetine 40 mg capsule See Rx Instructions .ROUTE .COMPLEX Qty: 30 5RF Dose Instruction: TAKE ONE CAPSULE BY MOUTH EVERY DAY Rx Instructions: TAKE ONE CAPSULE BY MOUTH EVERY DAY amlodipine 5 mg tablet See Rx Instructions .ROUTE .COMPLEX Qty: 30 5RF Dose Instruction: TAKE ONE TABLET BY MOUTH DAILY Rx Instructions: TAKE ONE TABLET BY MOUTH DAILY pramipexole 0.75 mg tablet See Rx Instructions .ROUTE .COMPLEX Qty: 30 2RF Dose Instruction: TAKE 1 TABLET BY MOUTH EVERY DAY Rx Instructions: TAKE 1 TABLET BY MOUTH EVERY DAY pantoprazole 40 mg tablet,delayed release (DR/EC) See Rx Instructions .ROUTE .COMPLEX Qty: 30 2RF Dose Instruction: TAKE 1 TABLET BY MOUTH EVERY DAY Rx Instructions: TAKE 1 TABLET BY MOUTH EVERY DAY chlorthalidone 50 mg tablet See Rx Instructions .ROUTE .COMPLEX Qty: 60 2RF Dose Instruction: TAKE 2 TABLETS BY MOUTH EVERY MORNING Rx Instructions: TAKE 2 TABLETS BY MOUTH EVERY MORNING celecoxib [Celebrex] 100 mg capsule 100 mg PO BID Qty: 60 2RF Hitchcock 10-325 mg Tablet 1 tab PO TID PRN (Reason: Pain) lisinopril 40 mg tablet 40 mg PO DAILY Voltaren Arthritis Pain 1 % gel 2 g topical QID PRN (Reason: Pain) Rx Instructions: apply to single elbow, wrist or hand; for hand includes palm/fingers/back of hand aspirin 81 mg tablet,delayed release (DR/EC) 81 mg PO DAILY Qty: 30 0RF Discharge Orders: Discharge ED (Routine); Ordered 11/04/22 Ordered By: Konrad Choi Referrals: Vita Maciel, [facility] COOPER [Primary Care Provider] - 1-3 days Discharge Diet: Advance as tolerated Discharge Activity: Resume usual activity Patient Instructions: COPD (Chronic Obstructive Pulmonary Disease) (ED) Coding Level of Care Code ED Electro Mechanical Designer for Kalee Trammell
[2022-11-04 16:33] LABS: Basophils % 0.2 %; Eosinophils % 0.1 %; Hemoglobin 12.3 g/dL (11.5-15.3); Lymphocytes # 2.3 10^3/uL (0.8-4.8); Lymphocytes % 18.1 %; Mean Corpuscular HGB Conc 32.4 g/dL (30.0-36.0); Mean Corpuscular Hemoglobin 28.3 pg (28.0-34.0); Mean Corpuscular Volume 87.4 fl (81-99); Mean Platelet Volume 9.1 fL (7.4-10.4); Monocytes # 0.7 10^3/uL (0.2-0.9); Monocytes % 5.3 %; Neutrophils # 9.52 10^3/uL (1.8-7.7); Nucleated Red Blood Cells % 0 %; Platelet Count 285 10^3/cmm (130-400); Red Blood Count 4.35 10^6/uL (4.1-5.3); Red Cell Distribution Width 15.8 % (12.1-15.1); White Blood Count 12.5 10^3/uL (4.0-10.0)
[2022-11-04] MEDS: dexamethasone 10 mg/mL INJ IVP (16:35)
[2022-11-04 16:36] VITALS: BP 152/8; O2SAT 94
[2022-11-04] MEDS: ipratropium 0.5 mg/2.5 mL Neb INHALATION (16:38)
[2022-11-04] MEDS: albuterol 2.5 mg/3 mL Neb INHALATION (16:38)
[2022-11-04 16:39] VITALS: PULSE 56; RESP 18; O2SAT 95
[2022-11-04 16:45] VITALS: PULSE 59; RESP 18; O2SAT 95
--- NOTE | 2022-11-04 16:45 | ECG_ITS ---
[facility] Test Date: 2022-11-04 Pat Name: Naida Atkins Department: Room: Gender: Female Life Sciences Director: : [id number] Requested By: Konrad Choi Order Number: [id number] Isidra MD: Akash Turpin M.D. Measurements Intervals [place] Rate: 59 P: 19 AL: 218 QRS: 72 QRSD: 111 T: 73 QT: 432 QTc: 431 Interpretive Statements SINUS BRADYCARDIA WITH FIRST DEGREE AV BLOCK MODERATE INTRAVENTRICULAR CONDUCTION DELAY [110+ ms QRS DURATION] Compared to ECG 06/26/2021 11:49:42 Intraventricular conduction delay now present Sinus rhythm no longer present Electronically Signed On 11-05-2022 18:35:31 CDT by Akash Turpin M.D. [email or web address] [email or web address] medical centerEdfolioeast [facility].[employer]/store/[id number]
[2022-11-04 16:52] LABS: INR 0.95 (0.8-1.2)
[2022-11-04 17:06] LABS: Alanine Aminotransferase 11 U/L (0-33); Albumin Level 3.7 g/dL (3.5-5.2); Alkaline Phosphatase 99 U/L (35-105); Anion Gap 16.6 (5-19); Aspartate Amino Transferase 10 U/L (0-32); Blood Urea Nitrogen 18 mg/dL (8-23); Calcium 8.6 mg/dL (8.5-10.5); Carbon Dioxide 27 mmol/L (22-29); Chloride 97 mmol/L (98-107); Glomerular Filtration Rate 83.2 mL/min (90-130); Glucose 99 mg/dL (65-115); NT Pro B Type Natriuretic Pept 579 pg/mL (0-125); Osmolality Calculated 286 mOsm/kg (285-295); Potassium 3.6 mmol/L (3.5-5.1); Sodium 137 mmol/L (136-145); Total Bilirubin 0.2 mg/dL (0.15-1.2); Total Protein 7.7 g/dL (6.6-8.7)
[2022-11-04 17:07] LABS: SARS Covid-2 Antigen negative (Negative)
== END 2022-11-04 17:25 | disposition home or self-care (01) ==
PROVIDERS: Emergency Provider Emergency Medicine; PCP Nurse Practitioner
DX: J44.1 Chronic obstructive pulmonary disease with (acute) exacerbation (principal); Z79.82 Long term (current) use of aspirin; Z87.891 Personal history of nicotine dependence; I12.9 Hypertensive chronic kidney disease with stage 1 through stage 4 chronic kidney disease, or unspecified chronic kidney disease; N18.9 Chronic kidney disease, unspecified; E78.5 Hyperlipidemia, unspecified; Z20.822 Contact with and (suspected) exposure to COVID-19
CPT/HCPCS: 36415; 71045; 80053; 83880; 85025; 85610; 87426; 93005; 94640; 96374; 99285; J1100; J7613; J7644

== ENCOUNTER → 2023-01-08 08:41 | Outpatient (BNVA) | payer MEDICARE, OTHER, SELFPAY | PROVIDERS: PCP Nurse Practitioner; Visit Provider Nurse Practitioner Family | DX: R50.9 Fever, unspecified (principal); N39.0 Urinary tract infection, site not specified; R31.9 Hematuria, unspecified | CPT/HCPCS: 81000; 87426 ==

== ENCOUNTER → 2023-02-26 15:57 | Outpatient (BNVA) | payer MEDICARE, MEDICAID, SELFPAY | PROVIDERS: PCP Nurse Practitioner; Visit Provider Nurse Practitioner Family | DX: R00.1 Bradycardia, unspecified (principal); R60.9 Edema, unspecified; Z79.899 Other long term (current) drug therapy; E55.9 Vitamin D deficiency, unspecified; E66.01 Morbid (severe) obesity due to excess calories; Z68.41 Body mass index [BMI] 40.0-44.9, adult; E78.5 Hyperlipidemia, unspecified; I10 Essential (primary) hypertension; J44.1 Chronic obstructive pulmonary disease with (acute) exacerbation | CPT/HCPCS: 80053; 80061; 81003; 82306; 83036; 83880; 84443; 85007; 85027 ==

== ENCOUNTER → 2023-03-06 13:53 | Outpatient (BNVA) | payer MEDICARE, MEDICAID, SELFPAY | PROVIDERS: PCP Nurse Practitioner; Visit Provider Internal Medicine | DX: I12.9 Hypertensive chronic kidney disease with stage 1 through stage 4 chronic kidney disease, or unspecified chronic kidney disease (principal); N18.9 Chronic kidney disease, unspecified; Z87.891 Personal history of nicotine dependence; E66.01 Morbid (severe) obesity due to excess calories; Z68.41 Body mass index [BMI] 40.0-44.9, adult; E78.2 Mixed hyperlipidemia; G47.33 Obstructive sleep apnea (adult) (pediatric); M79.604 Pain in right leg; M79.605 Pain in left leg | CPT/HCPCS: 99214 ==

== ENCOUNTER → 2023-03-14 11:06 | Outpatient (BNVA) | payer MEDICARE, SELFPAY | PROVIDERS: PCP Nurse Practitioner; Visit Provider Nurse Practitioner Family | DX: D51.9 Vitamin B12 deficiency anemia, unspecified (principal); Z79.899 Other long term (current) drug therapy | CPT/HCPCS: 80053; 81000; 82607; 82746; 85025 ==

== ENCOUNTER → 2023-05-23 11:26 | Outpatient (BNVA) | payer MEDICARE, MEDICAID, SELFPAY | PROVIDERS: PCP Nurse Practitioner Family; Visit Provider Nurse Practitioner Family | DX: E66.01 Morbid (severe) obesity due to excess calories (principal); E88.810 Metabolic syndrome; D51.9 Vitamin B12 deficiency anemia, unspecified; D51.3 Other dietary vitamin B12 deficiency anemia | CPT/HCPCS: 82607 ==

== ENCOUNTER 2023-07-22 13:57 | Outpatient (CLI) | payer MEDICARE, MEDICAID, SELFPAY ==
--- NOTE | 2023-07-22 14:01 | MM_ITS ---
WS: [email or web address] BILATERAL 3D TOMOSYNTHESIS DIGITAL SCREENING MAMMOGRAPHY WITH CAD CLINICAL INFORMATION: SCREENING HISTORY: Screening mammogram. No current complaints. COMPARISON: 2022 TECHNIQUE: Bilateral CC and MLO views. FINDINGS: Scattered fibroglandular densities bilaterally. No suspicious focal mass, asymmetry, calcifications, or architectural distortion. No evidence of malignancy. Incidental punctate and lucent centered calci fications. Vascular calcifications. Stable nodular intramammary lymph node upper outer RIGHT breast IMPRESSION: MM/[place] [id number] BI-RADS: 2-Benign FOLLOW UP: 1 Year Follow-up Recommend return to annual screening mammography.
== END 2023-07-22 13:58 | disposition home or self-care (01) ==
LOC: RAD 13:57
PROVIDERS: PCP Nurse Practitioner Family; Visit Provider Nurse Practitioner Family
DX: Z12.31 Encounter for screening mammogram for malignant neoplasm of breast (principal)
CPT/HCPCS: 77063; 77067

== ENCOUNTER → 2023-08-16 15:16 | Outpatient (BNVA) | payer MEDICARE, MEDICAID, SELFPAY | PROVIDERS: PCP Nurse Practitioner Family; Visit Provider Nurse Practitioner Family | DX: R30.0 Dysuria (principal) | CPT/HCPCS: 81000 ==

== ENCOUNTER 2023-10-31 17:49 | Outpatient (CLI) | payer MEDICAID, SELFPAY ==
--- NOTE | 2023-10-31 17:54 | XR_ITS ---
WS: [email or web address] Exam: XR cervical spine 3V* [id number] Date/Time of Exam: 10/31/2023 6:10 PM Reason For Exam: W19.XXXA - Unspecified fall, initial encounter No acute fracture or dislocation. Advanced degenerative disc change from C4-C7. Spondylosis from C4-C 7. Moderately advanced facet arthropathy. Paraspinal soft tissues appear normal. Prominent posterior osteophyte at the lower endplate of C4 might cause some spinal canal stenosis. The odontoid is intact . Several surgical clips in the lower C-spine region. XR/XR cervical spine 3V* [id number] IMPRESSION: 1. Moderately advanced degenerative changes from C4-C7. 2. No fracture or malalignment.
--- NOTE | 2023-10-31 17:54 | XR_ITS ---
WS: [email or web address] Exam: XR lumbar spine 2-3V* [id number] Date/Time of Exam: 10/31/2023 6:10 PM Reason For Exam: W19.XXXA - Unspecified fall, initial encounter Comparison 01/16/2021. Advanced disc degeneration at all levels. Mild spondylosis. Facet arthropathy at all levels. No fract ure. Moderate levoscoliosis. Degenerative changes are progressive since the last exam. XR/XR lumbar spine 2-3V* [id number] IMPRESSION: 1. Moderately advanced degenerative changes as detailed above. Levoscoliosis. 2. No fracture.
--- NOTE | 2023-10-31 17:54 | XR_ITS ---
WS: [email or web address] Exam: XR shoulder RT min 2V* [id number] Date/Time of Exam: 10/31/2023 6:10 PM Reason For Exam: W19.XXXA - Unspecified fall, initial encounter Comparison 05/31/2020. No fracture or dislocation. Mild DJD of the glenohumeral joint and the AC joint. Soft tissue calcific ations along the greater tuberosity that might indicate calcific tendinitis or bursitis. XR/XR shoulder RT min 2V* [id number] IMPRESSION: 1. Degenerative changes. Soft tissue calcifications that might represent bursit is or tendinitis.
--- NOTE | 2023-10-31 17:54 | XR_ITS ---
WS: [email or web address] Exam: XR shoulder LT min 2V* [id number] Date/Time of Exam: 10/31/2023 6:10 PM Reason For Exam: W19.XXXA - Unspecified fall, initial encounter No acute fracture. Mild degenerative change of the glenohumeral joint and the AC joint. Normal soft t issues. XR/XR shoulder LT min 2V* [id number] IMPRESSION: 1. Mild degenerative changes.
--- NOTE | 2023-10-31 17:54 | XR_ITS ---
WS: [email or web address] Exam: XR knee RT 3V* [id number] Date/Time of Exam: 10/31/2023 6:10 PM Reason For Exam: W19.XXXA - Unspecified fall, initial encounter Comparison 08/16/2022. Total knee arthroplasty noted in satisfactory position. No sign of loosening or fracture. No joint ef fusion. Faint calcifications superimpose the lateral compartment. No change. XR/XR knee RT 3V* [id number] IMPRESSION: 1. Intact RIGHT total knee arthroplasty. No change.
--- NOTE | 2023-10-31 17:54 | XR_ITS ---
WS: [email or web address] Exam: XR hip RT 2-3V wo/w pel* [id number] Date/Time of Exam: 10/31/2023 6:10 PM Reason For Exam: W19.XXXA - Unspecified fall, initial encounter Comparison 02/27/2021. RIGHT total hip arthroplasty is in place in satisfactory position. No sign of loosening or fracture. Normal soft tissues. XR/XR hip RT 2-3V wo/w pel* [id number] IMPRESSION: 1. Stable appearing RIGHT total hip arthroplasty.
== END 2023-10-31 17:50 | disposition home or self-care (01) ==
LOC: RAD 17:50
PROVIDERS: PCP Nurse Practitioner Family; Visit Provider Nurse Practitioner Family
DX: M54.12 Radiculopathy, cervical region (principal); W19.XXXA Unspecified fall, initial encounter; S16.1XXA Strain of muscle, fascia and tendon at neck level, initial encounter; S46.919A Strain of unspecified muscle, fascia and tendon at shoulder and upper arm level, unspecified arm, initial encounter; S39.012A Strain of muscle, fascia and tendon of lower back, initial encounter; M51.36 Other intervertebral disc degeneration, lumbar region; M47.896 Other spondylosis, lumbar region; M41.86 Other forms of scoliosis, lumbar region; Z96.651 Presence of right artificial knee joint; Z96.641 Presence of right artificial hip joint; M50.321 Other cervical disc degeneration at C4-C5 level; M50.322 Other cervical disc degeneration at C5-C6 level; M50.223 Other cervical disc displacement at C6-C7 level; M47.892 Other spondylosis, cervical region; M25.78 Osteophyte, vertebrae; M25.561 Pain in right knee
CPT/HCPCS: 72040; 72100; 73030; 73502; 73562

== ENCOUNTER 2023-11-02 20:21 | Emergency (ER) | payer MEDICARE, MEDICAID, SELFPAY ==
[2023-11-02 20:32] VITALS: BP 157/89; PULSE 77; RESP 16; TEMP 36.6; O2SAT 98; BMI 44.2
--- NOTE | 2023-11-02 21:16 | CTR_ITS ---
PROCEDURE INFORMATION: Exam: CT Cervical Spine Without Contrast Exam date and time: 11/02/2023 9:38 PM Age: 68 years old Clinical indication: Injury or trauma; Blunt trauma; Prior surgery; Surgery date: 6+ months; Surgery type: Thyroidectomy; Patient HX: C/O worsening neck and mid back pain since a fall one week ago. ; Additional info: Fall injury TECHNIQUE: Imaging protocol: Computed tomography of the cervical spine without contrast. Radiation optimization: All CT scans at this facility use at least one of these dose optimization techniques: automated exposure control; mA and/or kV adjustment per patient size (includes targeted exams where dose is matched to clinical indication); or iterative reconstruction. COMPARISON: CR XR cervical spine 3V* [id number] 10/31/2023 6:10 PM RADIATION DOSE METRICS: Total DLP (mGy-cm): 883.47 FINDINGS: Limitations: Motion artifact. Bones: Straightening and reversal of the normal lumbar lordosis. Severe degenerative changes of the mid and lower cervical spine. No evidence of acute fracture. Lungs: Partially imaged 3 mm right apical nodule, stable compared to 2021. Soft tissues: The soft tissues are within normal limits. CT/CT cervical spin wo con* [id number] IMPRESSION: No evidence of acute fracture.
--- NOTE | 2023-11-02 21:16 | CTR_ITS ---
PROCEDURE INFORMATION: Exam: CT Thoracic Spine Without Contrast Exam date and time: 11/02/2023 9:41 PM Age: 68 years old Clinical indication: Injury or trauma; Blunt trauma (contusions or hematomas); Prior surgery; Surgery date: 6+ months; Surgery type: Gb; Patient HX: C/O worsening neck and mid back pain since a fall one week ago. ; Additional info: Fall injury TECHNIQUE: Imaging protocol: Computed tomography of the thoracic spine without contrast. Radiation optimization: All CT scans at this facility use at least one of these dose optimization techniques: automated exposure control; mA and/or kV adjustment per patient size (includes targeted exams where dose is matched to clinical indication); or iterative reconstruction. COMPARISON: CT cervical spin wo con* [id number] 11/02/2023 9:38 PM RADIATION DOSE METRICS: Total DLP (mGy-cm): 1117.14 FINDINGS: Bones/joints: Normal thoracic kyphosis. Slight dextroscoliosis. Alignment is otherwise intact. Subtle superior endplate height loss of T2 and T3, likely chronic. [id number] multilevel degenerative changes of the thoracic spine. No definitive evidence of acute fracture. Soft tissues: Unremarkable. Other findings: Old granulomatous disease. CT/CT thoracic spin wo con* [id number] IMPRESSION: 1. Subtle superior endplate height loss of T2 and T3, likely chronic. Correlate with MR indicated. 2. No definitive evidence of acute fracture.
--- NOTE | 2023-11-02 21:16 | CTR_ITS ---
PROCEDURE INFORMATION: Exam: CT Lumbar Spine Without Contrast Exam date and time: 11/02/2023 9:44 PM Age: 68 years old Clinical indication: Injury or trauma; Blunt trauma (contusions or hematomas); Prior surgery; Surgery date: 6+ months; Surgery type: Hysterectomy; Patient HX: C/O worsening neck and mid back pain since a fall one week ago. ; Additional info: Fall injury TECHNIQUE: Imaging protocol: Computed tomography of the lumbar spine without contrast. Radiation optimization: All CT scans at this facility use at least one of these dose optimization techniques: automated exposure control; mA and/or kV adjustment per patient size (includes targeted exams where dose is matched to clinical indication); or iterative reconstruction. COMPARISON: MR lumbar spine wo con* [id number] 10/23/2019 2:54 PM RADIATION DOSE METRICS: Total DLP (mGy-cm): 1515.17 FINDINGS: Bones/joints: Trace retrolisthesis of L1 on L2. Subtle S shaped scoliosis. Minimal right lateral listhesis of L4 on L5 and left lateral listhesis of L3 on L4. Alignment is otherwise intact. No evidence of acute fracture. Nmwcyryf-[id number] multilevel degenerative changes of the lumbar spine. Soft tissues: The soft tissues are within normal limits. CT/CT lumbar spine wo con* [id number] IMPRESSION: No evidence of acute fracture.
--- NOTE | 2023-11-02 21:17 | PC.NURSE ---
[facility] PD contacted regarding the dog bite. SPoke with Jesse. Phone number for patients spouse given to officer.
--- NOTE | 2023-11-02 21:17 | W.ED.FALL ---
HPI - Fall General: Chief Complaint: Fall Stated Complaint: Neck and upper back pain Time Seen by Provider: 11/02/23 21:16 History of Present Illness: 68-year-old female fell approximately 8 days ago. Since then she has been seen at her primary care clinic and had x-rays done. Review of the record noted no acute fractures on the x-ray films. Patient comes in today due to increased pain and discomfort to her neck and back. Patient is also concerned about her left knee which seems to lock on her and she did not have x-rays done at that time. Review of Systems General: Reports: 10 or more systems reviewed and unremarkable except in HPI and below PFS ED PFS: Medical History (Updated 11/02/23 @ 23:21 by MARK Collado) Osteoarthritis, shoulder DDD (degenerative disc disease), cervical Osteoarthritis of left knee Right knee pain Lumbar strain Shoulder strain Cervical strain, acute Cervical radiculopathy Fall from standing Recurrent sinus infections Obesity, Class III, BMI 40-49.9 (morbid obesity) Upper respiratory infection Lower respiratory infection Metabolic syndrome Chest congestion Allergic dermatitis COPD exacerbation Bradycardia terminal superintendent (current) use of opiate analgesic Pain management contract signed Neck swelling Left shoulder pain Lower respiratory infection Edema ESR raised Breast cancer screening by mammogram Urinary incontinence Vitamin B12 deficiency anemia Right hip pain Pelvic pain in female Vitamin D deficiency DVT (deep venous thrombosis) Medication management Sinusitis Obesity, Class III, BMI 40-49.9 (morbid obesity) Bacterial otitis media Otitis media Bilateral lower extremity pain Osteoarthritis Lumbago Psoriatic arthritis Yeast vaginitis Post-surgical hypothyroidism Recurrent UTI Mixed stress and urge urinary incontinence Urinary incontinence Asthma Fatigue Anemia Obesity GERD (gastroesophageal reflux disease) RLS (restless legs syndrome) SAURAV (obstructive sleep apnea) Edema COPD (chronic obstructive pulmonary disease) Fibromyalgia Essential hypertension Hyperlipidemia DDD (degenerative disc disease) CKD (chronic kidney disease) Surgical History History of total knee replacement rt Hx of elbow surgery H/O thyroidectomy S/P cholecystectomy S/P carpal tunnel release S/P hysterectomy S/P hip replacement Family History Brother Cancer Father Cancer Other CAD (coronary artery disease) Diabetes Hyperlipidemia Hypertension Obesity Social History Smoking and tobacco/nicotine status: former use of tobacco/nicotine Alcohol intake: current Alcohol intake frequency: holidays/special occasions only Substance/Drug Use: never Adopted: No Caregiver/support person: No Lives independently: No Household members: spouse Marital status: Current occupational status: disabled Current occupation: retired Previous occupational history: FACTORY Current gender identity: Female Physical Exam Const: COMMON NORMALS: alert HENMT: COMMON NORMALS: normocephalic HEAD & SCALP: normocephalic Neck/C-Spine: CERVICAL SPINE: Yes Cervical spine tenderness and Yes Paracervical muscle tenderness Chest: COMMONS NORMALS: normal inspection of the chest Cardio: COMMON NORMALS: regular rate RATE: regular rate GI: COMMON NORMALS: non-tender Back/Pelvis: THORACIC SPINE/UPPER BACK: Yes paraspinal muscle tenderness LUMBAR SPINE/LOWER BACK: Yes paraspinal muscle tenderness Neuro: SENSORIUM/ORIENTATION: Yes alert Skin: COMMON NORMALS: turgor normal GENERAL SKIN EXAM: turgor normal Course Vital Signs: Vital signs: Vital Signs Temperature 97.8 F 11/02/23 20:32 Pulse Rate 77 11/02/23 20:32 Respiratory Rate 16 11/02/23 20:32 Blood Pressure 157/89 11/02/23 20:32 Pulse Oximetry 98 11/02/23 20:32 MDM - Fall Medical Decision Making 68-year-old female who fell about a week ago while walking down some steps. Patient been seen by primary care and had x-rays done at that time. I reviewed the x-rays and noted no acute abnormalities. Patient did have some significant arthritis. Differential diagnosis includes intervertebral disc disease, facet arthropathy, occult fracture, strain. X-ray of left knee noted no fractures but significant arthritis. CT of the cervical spine, thoracic spine, and lumbar spine noted no obvious acute fractures. Patient was given 30 mg ketorolac and 1 hydrocodone 10 mg with 325 of acetaminophen. Patient had significant pain relief after medication. Patient requested a soft collar for her neck as she has been having spasms in her neck. Patient does have hydrocodone at home and will use that as needed for her pain along with her routine Celebrex. Patient was written for some baclofen for muscle spasms. Patient and family both reported understanding of care plan and recommendation for follow-up with primary care for further imaging as needed. Lab Data Radiology Impressions Cervical Spine CT 11/02/23 21:16 IMPRESSION: No evidence of acute fracture. Lumbar Spine CT 11/02/23 21:16 IMPRESSION: No evidence of acute fracture. Thoracic Spine CT 11/02/23 21:16 IMPRESSION: 1. Subtle superior endplate height loss of T2 and T3, likely chronic. Correlate with MR indicated. 2. No definitive evidence of acute fracture. Knee X-Ray 11/02/23 21:23 IMPRESSION: No evidence of acute fracture or dislocation. All radiology interpretation(s) finalized by discharge Discharge Plan Discharge Patient Disposition: Home Clinical Impression: Spondylosis of lumbar spine Fall Qualifiers: Encounter type: initial encounter Qualified Code(s): W19.XXXA - Unspecified fall, initial encounter Cervical strain, acute Qualifiers: Encounter type: initial encounter Qualified Code(s): S16.1XXA - Strain of muscle, fascia and tendon at neck level, initial encounter Condition: Stable Prescriptions: New baclofen 5 mg tablet 5 mg PO TID PRN (Reason: muscle spasm) Qty: 14 0RF No Action albuterol sulfate 90 mcg/actuation HFA aerosol inhaler See Rx Instructions .ROUTE .COMPLEX Qty: 8.5 3RF Dose Instruction: USE 1 INHALATION BY MOUTH EVERY 6 HOURS NEEDED FOR SHORTNESS OF BREATH Rx Instructions: USE 1 INHALATION BY MOUTH EVERY 6 HOURS NEEDED FOR SHORTNESS OF BREATH diclofenac sodium [Voltaren Arthritis Pain] 1 % gel 2 g topical QID 30 Days Qty: 100 5RF Rx Instructions: apply to single elbow, wrist or hand; for hand includes palm/fingers/back of hand Caltrate 600 plus D 600 mg-20 mcg (800 unit) tablet,chewable 1 tab PO DAILY 90 Days Qty: 90 1RF triamcinolone acetonide 0.025 % cream 1 applic topical BID 30 Days Qty: 15 0RF cyanocobalamin (vitamin B-12) 1,000 mcg/mL solution 1,000 mcg IM DAILY 28 Days Qty: 4 0RF prednisone 20 mg tablet 40 mg PO .Daily in A.M. 5 Days Qty: 10 0RF fluconazole 150 mg tablet 150 mg PO Q3D Qty: 2 1RF celecoxib [Celebrex] 200 mg capsule 200 mg PO BID 30 Days Qty: 60 1RF (DME) CPAP See Rx Instructions .Route .MEDSUPPLY Qty: 1 0RF Rx Instructions: As directed levothyroxine 100 mcg tablet See Rx Instructions .ROUTE .COMPLEX Qty: 30 5RF Dose Instruction: TAKE ONE TABLET BY MOUTH EVERY DAY Rx Instructions: TAKE ONE TABLET BY MOUTH EVERY DAY fluoxetine 40 mg capsule See Rx Instructions .ROUTE .COMPLEX Qty: 30 5RF Dose Instruction: TAKE ONE CAPSULE BY MOUTH EVERY DAY Rx Instructions: TAKE ONE CAPSULE BY MOUTH EVERY DAY fluconazole 150 mg tablet 150 mg PO Q3D Qty: 2 0RF amlodipine 5 mg tablet See Rx Instructions .ROUTE .COMPLEX Qty: 30 5RF Dose Instruction: TAKE ONE TABLET BY MOUTH DAILY Rx Instructions: TAKE ONE TABLET BY MOUTH DAILY estradiol 2 mg tablet See Rx Instructions .ROUTE .COMPLEX Qty: 30 5RF Dose Instruction: TAKE 1 TABLET BY MOUTH EVERY DAY Rx Instructions: TAKE 1 TABLET BY MOUTH EVERY DAY lisinopril 40 mg tablet See Rx Instructions .ROUTE .COMPLEX Qty: 30 5RF Dose Instruction: TAKE 1 TABLET BY MOUTH EVERY DAY Rx Instructions: TAKE 1 TABLET BY MOUTH EVERY DAY tizanidine 4 mg tablet See Rx Instructions .ROUTE .COMPLEX Qty: 60 5RF Dose Instruction: TAKE ONE TABLET BY MOUTH TWICE DAILY NEEDED FOR MUSCLE SPASTICITY Rx Instructions: TAKE ONE TABLET BY MOUTH TWICE DAILY NEEDED FOR MUSCLE SPASTICITY oxybutynin chloride 15 mg tablet extended release 24hr See Rx Instructions .ROUTE .COMPLEX Qty: 60 5RF Dose Instruction: TAKE 2 TABLETS BY MOUTH EVERY DAY FOR 30 DAYS Rx Instructions: TAKE 2 TABLETS BY MOUTH EVERY DAY FOR 30 DAYS pramipexole 0.75 mg tablet See Rx Instructions .ROUTE .COMPLEX Qty: 30 2RF Dose Instruction: TAKE 1 TABLET BY MOUTH EVERY DAY Rx Instructions: TAKE 1 TABLET BY MOUTH EVERY DAY chlorthalidone 50 mg tablet See Rx Instructions .ROUTE .COMPLEX Qty: 60 2RF Dose Instruction: TAKE 2 TABLETS BY MOUTH EVERY MORNING Rx Instructions: TAKE 2 TABLETS BY MOUTH EVERY MORNING Victoza 2-Neil 0.6 mg/0.1 mL (18 mg/3 mL) pen injector See Rx Instructions .ROUTE .COMPLEX Qty: 6 1RF Dose Instruction: INJECT 0.6MG SUBCUTANEOUSLY EVERY DAY for 7 days, THEN 1.2MG EVERY DAY for 7 days. DO NOT EXCEED 1.8MG EVERY DAY Rx Instructions: 1.8 first injection, 0.6 second injection daily. (DME) pen needle, diabetic [BD Ultra-Fine Alla Pen Needle] 32 gauge x 5/32 needle See Rx Instructions .Route Qty: 100 0RF Rx Instructions: As directed pantoprazole 40 mg tablet,delayed release (DR/EC) See Rx Instructions .ROUTE .COMPLEX Qty: 30 2RF Dose Instruction: TAKE 1 TABLET BY MOUTH EVERY DAY Rx Instructions: TAKE 1 TABLET BY MOUTH EVERY DAY [place] 10-325 mg Tablet 1 tab PO TID PRN (Reason: Pain) aspirin 81 mg tablet,delayed release (DR/EC) 81 mg PO DAILY Qty: 30 0RF Discharge Orders: Discharge ED (Routine); Ordered 11/02/23 Ordered By: Chance Muñoz Referrals: VEGA Hopper, AMPLIFIER MECHANIC [Primary Care Provider] - Discharge Diet: Usual diet Discharge Activity: Increase activity as tolerated Patient Instructions: Cervical Strain (ED) Activity Restrictions/Additional Instructions: Activity as tolerated. Continue with routine medications as directed. Use baclofen as needed for pain related to muscle spasms. Use ice and heat for further pain relief. Drink plenty of water with medication. Return to ED for new concerns. Coding Level of Care Code ED Insurance Professional for Kalee Trammell
--- NOTE | 2023-11-02 21:23 | XRR_ITS ---
PROCEDURE INFORMATION: Exam: XR Left Knee Exam date and time: 11/02/2023 9:31 PM Age: 68 years old Clinical indication: Injury or trauma; Fall; Other: Pain; Additional info: Injury, left knee pain TECHNIQUE: Imaging protocol: Radiologic exam of the left knee. Views: 3 views. COMPARISON: CR XR knee LT 3V* [id number] 08/16/2022 3:02 PM FINDINGS: Bones/joints: Bones are demineralized. Alignment is intact. No evidence of acute fracture or dislocation. Severe tricompartmental degenerative changes of the left knee. No joint effusion. Soft tissues: The soft tissues are within normal limits. XR/XR knee LT 3V* [id number] IMPRESSION: No evidence of acute fracture or dislocation.
[2023-11-02] MEDS: ketorolac 30 mg/mL INJ IM (22:00)
[2023-11-02] MEDS: HYDROcodone-acetaminophen 10-325 mg Tablet 1 TAB PO (22:01)
[2023-11-02 23:42] VITALS: BP 162/86; O2SAT 98
== END 2023-11-02 23:45 | disposition home or self-care (01) ==
PROVIDERS: Emergency Provider Nurse Practitioner Family; PCP Nurse Practitioner Family
DX: S16.1XXA Strain of muscle, fascia and tendon at neck level, initial encounter (principal); M47.816 Spondylosis without myelopathy or radiculopathy, lumbar region; Z79.82 Long term (current) use of aspirin; Z87.891 Personal history of nicotine dependence; I12.9 Hypertensive chronic kidney disease with stage 1 through stage 4 chronic kidney disease, or unspecified chronic kidney disease; N18.9 Chronic kidney disease, unspecified; J44.9 Chronic obstructive pulmonary disease, unspecified; E78.5 Hyperlipidemia, unspecified; W19.XXXA Unspecified fall, initial encounter
CPT/HCPCS: 72125; 72128; 72131; 73562; 96372; 99284; J1885

== ENCOUNTER → 2024-01-21 16:50 | Outpatient (BNVA) | payer MEDICARE, MEDICAID, SELFPAY | PROVIDERS: PCP Nurse Practitioner Family; Visit Provider Nurse Practitioner Family | DX: Z20.822 Contact with and (suspected) exposure to COVID-19 (principal) | CPT/HCPCS: 87426 ==

== ENCOUNTER → 2024-01-22 14:00 | Outpatient (BNVA) | payer MEDICARE, MEDICAID, SELFPAY | PROVIDERS: PCP Nurse Practitioner Family; Visit Provider Internal Medicine | DX: E78.2 Mixed hyperlipidemia (principal); E66.01 Morbid (severe) obesity due to excess calories; Z68.41 Body mass index [BMI] 40.0-44.9, adult; G47.33 Obstructive sleep apnea (adult) (pediatric); M79.604 Pain in right leg; M79.605 Pain in left leg; I10 Essential (primary) hypertension | CPT/HCPCS: 36415; 80048; 81001; 83880; 99214 ==

== ENCOUNTER → 2024-03-17 10:28 | Outpatient (BNVA) | payer MEDICARE, MEDICAID, SELFPAY | PROVIDERS: PCP Nurse Practitioner Family; Visit Provider Nurse Practitioner Family | DX: I10 Essential (primary) hypertension (principal); R60.0 Localized edema; F17.200 Nicotine dependence, unspecified, uncomplicated; G47.33 Obstructive sleep apnea (adult) (pediatric) | CPT/HCPCS: 99213 ==

== ENCOUNTER 2024-03-18 13:58 | Outpatient (CLI) | payer MEDICARE, MEDICAID, SELFPAY ==
--- NOTE | 2024-03-18 14:01 | USCV_ITS ---
Naida Atkins Age: 69 Gender: F : 1955 Exam Date: 03/18/2024 14:45 Ordering Phys: Pasha Sol M.D ([email or web address]) Technologist: CT Exam Location: [facility] [place] Indication: BP: 156 / 86 HR: 64 Rhythm: Sinus Technical Quality: Adequate MEASUREMENTS (Male / Female) Normal Values 2D ECHO LVOT Diameter 2.0 cm LV Ejection Fraction MOD 4C 54.0 % LV Ejection Fraction MOD 2C 58.8 % LV Ejection Fraction 2C AL 59.4 % LA Diameter 4.1 cm RA Systolic Volume 4C AL 55.5 ml RA Systolic Volume 4C MOD 53.8 ml LA Sys Volume AL 96.9 cm cubed LA Sys Volume Index AL 40.4 cm cubed/m squared Aorta at Sinotubular Diameter 2.1 cm M-MODE LA Ao Ratio MM 1.7 AV Cusp Separation MM 1.8 cm DOPPLER AV Peak Velocity 141.0 cm/s LVOT Peak Velocity 104.0 cm/s AV Area Cont Eq vti 2.7 cm squared AV Area Cont Eq pk 2.3 cm squared MV Peak Velocity 101.0 cm/s MV Area PHT 2.8 cm squared Mitral E to A Ratio 0.8 TR Peak Velocity 195.0 cm/s TR Peak Gradient 15.2 mmHg TV Peak E Velocity 69.0 cm/s Right Atrial Pressure 3.0 mmHg Pulmonary Artery Systolic Pressu 18.2 mmHg PV Peak Velocity 130.0 cm/s FINDINGS Left Ventricle Left ventricle is normal in size. LV systolic function is normal with EF 55-60%. No regional wall motion abnormalities are seen. Grade 1 diastolic dysfunction Right Ventricle Normal in size and function Right Atrium Normal in size Left Atrium Dilated Mitral Valve Mild mitral annular calcification. Trace mitral regurgitation. Aortic Valve Structurally normal aortic valve. No significant stenosis or regurgitation. Tricuspid Valve Mild tricuspid regurgitation. Pulmonary artery systolic pressure is normal. Pulmonic Valve Not well visualized Pericardium Normal Aorta Normal in size IVC Appears to be normal CONCLUSIONS LV systolic function is normal with EF of 55-60% Grade 1 diastolic dysfunction Left atrial dilation Trace mitral regurgitation Mild tricuspid regurgitation Compared to prior echocardiogram from 2021, no significant changes are seen. Pasha Sol MD (Electronically Signed) Final Date: 29 March 2024 12:39 S
== END 2024-03-18 13:59 | disposition home or self-care (01) ==
LOC: RAD 13:59
PROVIDERS: PCP Nurse Practitioner Family; Visit Provider Internal Medicine
DX: I50.30 Unspecified diastolic (congestive) heart failure (principal); R07.9 Chest pain, unspecified; R06.02 Shortness of breath
CPT/HCPCS: 93306

== ENCOUNTER 2024-05-19 19:42 | Emergency (ER) | payer MEDICARE, MEDICAID, SELFPAY ==
[2024-05-19] VITALS (8 sets, daily range): BP systolic 111–157; BP diastolic 64–110; PULSE 77–98; RESP 18; TEMP 36.6; O2SAT 93–99; BMI 43.0
--- NOTE | 2024-05-19 20:02 | ED.C_ITS ---
HPI - Psych General: Chief Complaint: Anxiety Stated Complaint: anxiety Time Seen by Provider: 05/19/24 19:50 Source: patient and EMS Mode of arrival: EMS Limitations: no limitations History of Present Illness: 69-year-old female who is here have an a nxiety attack. She states that her daughter just killed herself roughly 2 hours ago she has been extremely distraught EMS and brought her in has not given her any medications she denies SI but is in extreme anxiety and upset Related Data Home Medications Medication Instructions Recorded Confirmed hydrocodone 10 mg-acetaminophen 1 tab PO TID PRN Pain 06/26/21 05/08/24 325 mg tablet Previous Rx's Medication Instructions Recorded CPAP #1 ea 10/05/20 aspirin 81 mg tablet,delayed 81 mg PO DAILY #30 tabs 06/26/21 release baclofen 5 mg tablet 5 mg PO BID PRN muscle spasm #60 11/08/23 tabs estradiol 2 mg tablet See Rx Instructions .Route 01/15/24 .COMPLEX #30 tabs lisinopril 40 mg tablet See Rx Instructions .Route 01/15/24 .COMPLEX #30 tabs pantoprazole 40 mg tablet,delayed See Rx Instructions .Route 01/15/24 release .COMPLEX #30 tabs celecoxib 100 mg capsule See Rx Instructions .Route 01/16/24 .COMPLEX #60 caps Wheelchair #1 ea 01/21/24 amlodipine 10 mg tablet 10 mg PO DAILY #90 tabs 01/22/24 diclofenac sodium 1 % topical gel 2 g topical QID 30 days #100 grams 01/24/24 (Voltaren Arthritis Pain) oxybutynin chloride 15 mg See Rx Instructions .Route 02/13/24 tablet,extended release 24 hr .COMPLEX #60 tabs doxycycline hyclate 100 mg capsule 100 mg PO BID 10 days #20 caps 05/08/24 albuterol sulfate 90 mcg/actuation See Rx Instructions .Route 05/12/24 aerosol inhaler .COMPLEX #8.5 grams chlorthalidone 50 mg tablet See Rx Instructions .Route 05/12/24 .COMPLEX #60 tabs fluoxetine 40 mg capsule See Rx Instructions .Route 05/12/24 .COMPLEX #30 caps levothyroxine 100 mcg tablet See Rx Instructions .Route 05/12/24 .COMPLEX #30 tabs pramipexole 0.75 mg tablet See Rx Instructions .Route 05/12/24 .COMPLEX #30 tabs Allergies Allergy/AdvReac Type Severity Reaction Status Date / Time guaifenesin [From Mucinex] Allergy rapid pulse Verified 05/19/24 20:06 Iodinated Contrast Media Allergy edema Verified 05/19/24 20:06 shellfish derived Allergy edema Verified 05/19/24 20:06 pregabalin [From Lyrica] AdvReac Intermediate made her Verified 05/19/24 20:06 very sleepy/GAINED WEIGHT Review of Systems Const: Denies: fever(s), chills, body aches or change in appetite ENMT: Denies: throat pain or dental pain Card: Denies: chest pain Resp: Denies: dyspnea GI: Denies: abdominal pain, nausea, vomiting or diarrhea Musc: Denies: neck pain or back pain Skin/Breast: Denies: rash Neuro: Denies: headache(s) Psych: Reports: anxiety PFS ED PFSH: Medical History (Updated 05/19/24 @ 21:29 by Konrad Choi MD) Anxiety and depression Lower respiratory infection Lower respiratory infection Cough COPD exacerbation Edema DDD (degenerative disc disease), lumbar Thoracic degenerative disc disease Osteoarthritis, shoulder DDD (degenerative disc disease), cervical Osteoarthritis of left knee Right knee pain Lumbar strain Shoulder strain Cervical strain, acute Cervical radiculopathy Fall from standing Recurrent sinus infections Obesity, Class III, BMI 40-49.9 (morbid obesity) Upper respiratory infection Metabolic syndrome Chest congestion Allergic dermatitis Bradycardia halfway (current) use of opiate analgesic Pain management contract signed Neck swelling Left shoulder pain Edema ESR raised Breast cancer screening by mammogram Urinary incontinence Vitamin B12 deficiency anemia Right hip pain Pelvic pain in female Vitamin D deficiency DVT (deep venous thrombosis) Medication management Sinusitis Obesity, Class III, BMI 40-49.9 (morbid obesity) Bacterial otitis media Otitis media Bilateral lower extremity pain Osteoarthritis Lumbago Psoriatic arthritis Yeast vaginitis Post-surgical hypothyroidism Recurrent UTI Mixed stress and urge urinary incontinence Urinary incontinence Asthma Fatigue Anemia Obesity GERD (gastroesophageal reflux disease) RLS (restless legs syndrome) SAURAV (obstructive sleep apnea) COPD (chronic obstructive pulmonary disease) Fibromyalgia Essential hypertension Hyperlipidemia DDD (degenerative disc disease) CKD (chronic kidney disease) Surgical History History of total knee replacement rt Hx of elbow surgery H/O thyroidectomy S/P cholecystectomy S/P carpal tunnel release S/P hysterectomy S/P hip replacement Family History Brother Cancer Father Cancer Other CAD (coronary artery disease) Diabetes Hyperlipidemia Hypertension Obesity Social History Smoking and tobacco/nicotine status: current every day tobacco/nicotine user (1/2 pack a day) cigarettes Alcohol intake: current Alcohol intake frequency: holidays/special occasions only Substance/Drug Use: never Adopted: No Caregiver/support person: No Lives independently: No Household members: spouse Marital status: Current occupational status: disabled Current occupation: retired Previous occupational history: FACTORY Current gender identity: Female Physical Exam Const: COMMON NORMALS: patient oriented x3 GENERAL APPEARANCE: anxious HENMT: COMMON NORMALS: normocephalic and atraumatic HEAD & SCALP: normocephalic and atraumatic Neck/C-Spine: COMMON NORMALS: full ROM and supple Chest: COMMONS NORMALS: normal inspection of the chest Resp: COMMON NORMALS: normal respiratory effort, No retractions, No use of accessory muscles and clear to auscultation bilaterally AUSCULTATION: clear to auscultation bilaterally Cardio: COMMON NORMALS: regular rate, regular rhythm and No murmurs present (Cardio) RATE: regular rate RHYTHM: regular rhythm Extremity: COMMON NORMALS: normal to inspection and full ROM Neuro: COMMON NORMALS: patient oriented x3, moves all extremities and no focal motor deficits Psych: COMMON NORMALS: mental status grossly normal, Normal thought process present and cooperative MOOD & AFFECT: Yes anxious THOUGHT PROCESS: Normal thought process present Skin: COMMON NORMALS: no rashes or lesions noted and no wounds GENERAL SKIN EXAM: no rashes or lesions noted Course Vital Signs: Vital signs: Vital Signs Temperature 97.8 F 05/19/24 19:54 Pulse Rate 80 05/19/24 21:30 Respiratory Rate 18 05/19/24 19:54 Blood Pressure 153/84 05/19/24 21:30 Pulse Oximetry 99 05/19/24 21:30 Oxygen Delivery Me thod Room Air 05/19/24 21:30 MDM - Psych Medical Decision Making Patient presents here with an anxiety attack she is not homicidal or suicidal she does feel improved here she is stable for discharge follow-up PCP and return if worsening Medical Records I reviewed the patient's medical records. All radiology interpretation(s) finalized by discharge Discharge Plan Discharge Patient Disposition: Home Clinical Impression: Acute anxiety Condition: Stable Prescriptions: No Action amlodipine 10 mg tablet 10 mg PO DAILY Qty: 90 3RF (DME) Wheelchair See Rx Instructions .Route .MEDSUPPLY Qty: 1 0RF Rx Instructions: As directed doxycycline hyclate 100 mg capsule 100 mg PO BID 10 Days Qty: 20 0RF (DME) CPAP See Rx Instructions .Route .MEDSUPPLY Qty: 1 0RF Rx Instructions: As directed baclofen 5 mg tablet 5 mg PO BID PRN (Reason: muscle spasm) Qty: 60 0RF pantoprazole 40 mg tablet,delayed release (DR/EC) See Rx Instructions .ROUTE .COMPLEX Qty: 30 5RF Dose Instruction: TAKE 1 TABLET BY MOUTH EVERY DAY Rx Instructions: TAKE 1 TABLET BY MOUTH EVERY DAY lisinopril 40 mg tablet See Rx Instructions .ROUTE .COMPLEX Qty: 30 5RF Dose Instruction: TAKE 1 TABLET BY MOUTH EVERY DAY Rx Instructions: TAKE 1 TABLET BY MOUTH EVERY DAY estradiol 2 mg tablet See Rx Instructions .ROUTE .COMPLEX Qty: 30 5RF Dose Instruction: TAKE 1 TABLET BY MOUTH EVERY DAY Rx Instructions: TAKE 1 TABLET BY MOUTH EVERY DAY celecoxib 100 mg capsule See Rx Instructions .ROUTE .COMPLEX Qty: 60 5RF Dose Instruction: TAKE 1 CAPSULE BY MOUTH TWICE DAILY Rx Instructions: TAKE 1 CAPSULE BY MOUTH TWICE DAILY diclofenac sodium [Voltaren Arthritis Pain] 1 % gel 2 g topical QID 30 Days Qty: 100 2RF Rx Instructions: apply to single elbow, wrist or hand; for hand includes palm/fingers/back of hand oxybutynin chloride 15 mg tablet extended release 24hr See Rx Instructions .ROUTE .COMPLEX Qty: 60 5RF Dose Instruction: TAKE 2 TABLETS BY MOUTH EVERY DAY FOR 30 DAYS Rx Instructions: TAKE 2 TABLETS BY MOUTH EVERY DAY FOR 30 DAYS pramipexole 0.75 mg tablet See Rx Instructions .ROUTE .COMPLEX Qty: 30 2RF Dose Instruction: TAKE 1 TABLET BY MOUTH EVERY DAY Rx Instructions: TAKE 1 TABLET BY MOUTH EVERY DAY levothyroxine 100 mcg tablet See Rx Instructions .ROUTE .COMPLEX Qty: 30 2RF Dose Instruction: TAKE ONE TABLET BY MOUTH EVERY DAY Rx Instructions: TAKE ONE TABLET BY MOUTH EVERY DAY fluoxetine 40 mg capsule See Rx Instructions .ROUTE .COMPLEX Qty: 30 2RF Dose Instruction: TAKE ONE CAPSULE BY MOUTH EVERY DAY Rx Instructions: TAKE ONE CAPSULE BY MOUTH EVERY DAY chlorthalidone 50 mg tablet See Rx Instructions .ROUTE .COMPLEX Qty: 60 2RF Dose Instruction: TAKE 2 TABLETS BY MOUTH EVERY MORNING Rx Instructions: TAKE 2 TABLETS BY MOUTH EVERY MORNING albuterol sulfate 90 mcg/actuation HFA aerosol inhaler See Rx Instructions .ROUTE .COMPLEX Qty: 8.5 2RF Dose Instruction: USE 1 INHALATION BY MOUTH EVERY 6 HOURS NEEDED FOR SHORTNESS OF BREATH Rx Instructions: USE 1 INHALATION BY MOUTH EVERY 6 HOURS NEEDED FOR SHORTNESS OF BREATH [place] 10-325 mg Tablet 1 tab PO TID PRN (Reason: Pain) aspirin 81 mg tablet,delayed release (DR/EC) 81 mg PO DAILY Qty: 30 0RF Discharge Orders: Discharge ED (Routine); Ordered 05/19/24 Ordered By: Konrad Choi Referrals: VEGA Hopper, EXPANDER MACHINE OPERATOR [Primary Care Provider] - 4-7 days Discharge Diet: Advance as tolerated Discharge Activity: Resume usual activity Patient Instructions: Anxiety (ED) Coding Level of Care Code ED Intelligence Applications for Kalee Trammell
[2024-05-19] MEDS: LORazepam 2 mg/mL INJ 1 mL 1 MG IVP (20:04)
--- NOTE | 2024-05-19 20:12 | PC.NURSE ---
pt is distraught and not able to answer the SI questions at this time. ED physician is aware and we will be readdress the SI questions when the pt is better able to comprehend the questions being asked.
[2024-05-19] MEDS: ALPRAZolam 0.5 mg Tablet PO ×2 (21:46)
== END 2024-05-19 22:18 | disposition home or self-care (01) ==
PROVIDERS: Emergency Provider Emergency Medicine; PCP Nurse Practitioner Family
DX: F41.8 Other specified anxiety disorders (principal); Z79.82 Long term (current) use of aspirin; F17.210 Nicotine dependence, cigarettes, uncomplicated; I12.9 Hypertensive chronic kidney disease with stage 1 through stage 4 chronic kidney disease, or unspecified chronic kidney disease; N18.9 Chronic kidney disease, unspecified; J44.9 Chronic obstructive pulmonary disease, unspecified; E78.5 Hyperlipidemia, unspecified
CPT/HCPCS: 36415; 96374; 99284; J2060

== ENCOUNTER → 2024-08-17 16:40 | Outpatient (BNVA) | payer MEDICARE, MEDICAID, SELFPAY | PROVIDERS: PCP Nurse Practitioner Family; Visit Provider Nurse Practitioner Family | DX: M25.551 Pain in right hip (principal) | CPT/HCPCS: 73502; 80053; 80061; 81003; 82306; 82607; 82728; 83036; 83550; 84443; 85025 ==

== ENCOUNTER 2024-09-09 11:32 | Outpatient (CLI) | payer MEDICARE, MEDICAID, SELFPAY ==
--- NOTE | 2024-09-09 11:20 | MM_ITS ---
WS: [id number] BILATERAL SCREENING DIGITAL TOMOSYNTHESIS MAMMOGRAM WITH CAD HISTORY: SCREENING COMPARISON: 07/22/2023, 07/16/2022, 05/08/2021 Bilateral CC and MLO views with tomosynthesis and synthetic mammography submitted. Computer aided detection analyzed. Breast composition: There are scattered areas of fibroglandular density. No suspicious masses, microcalcifications or architectural distortion. Bilateral breast masses and scattered benign calcifications are stable over multiple prior years. No new mass or increasing size of the existing masses. MM/MM scr tomosynthesis [id number] IMPRESSION: BI-RADS: 2 - Benign. FOLLOW UP: 1 Year Follow-up
== END 2024-09-09 11:33 | disposition home or self-care (01) ==
LOC: MOBLMAM 11:34
PROVIDERS: PCP Nurse Practitioner Family; Visit Provider Nurse Practitioner Family
DX: Z12.31 Encounter for screening mammogram for malignant neoplasm of breast (principal); R92.323 Mammographic fibroglandular density, bilateral breasts; N64.89 Other specified disorders of breast; R92.1 Mammographic calcification found on diagnostic imaging of breast
CPT/HCPCS: 77063; 77067

== ENCOUNTER 2024-09-17 09:38 | Outpatient (CLI) | payer MEDICARE, MEDICAID, SELFPAY ==
--- NOTE | 2024-09-17 10:03 | USR_ITS ---
PROCEDURE INFORMATION: Exam: US Bilateral Noninvasive Physiologic Study of the Lower Extremity Arteries, Limited Exam date and time: 09/17/2024 9:53 AM Age: 69 years old Clinical indication: Condition or disease; Peripheral vascular disease; Additional info: Pad TECHNIQUE: Imaging protocol: Bilateral Limited bilateral noninvasive physiologic studies of lower extremity arteries. Waveforms were obtained and evaluated. Images were documented and archived. Exam is limited. COMPARISON: US transvaginal [id number] 02/07/2021 2:32 PM FINDINGS: Right Ankle-Brachial Index: At the posterior tibial 1.02, at the dorsalis pedis 0.92 and in the digit 0.68. Left Ankle-Brachial Index: At posterior tibial 1.01, at the dorsalis pedis 0.95 and in the digit 0.70. US/CV ankle brachial index [id number] IMPRESSION: No evidence of stenosis or occlusion in the lower extremity.
--- NOTE | 2024-09-17 13:30 | XR_ITS ---
WS: [email or web address] SCREENING DEXA SCAN [employer] CLINICAL INFORMATION: Z78.0 - Asymptomatic menopausal state COMPARISON: None. FINDINGS: The L1-L4 bone mineral density measures 1.489 g/cm2. This corresponds to a T score score of 2.6 and Z score of 3.1. Left femoral neck bone mineral density measures 0.874 (g/cm2). This corresponds to a T score of -1.1 (no units) and Z score of -0.4 (no units). LEFT forearm bone mineral density measures 0.962. This corresponds to a T score of 1.0 and Z score of 2.9. XR/XR DEXA axial skeleton* [id number] IMPRESSION: Normal bone mineralization lumbar spine and LEFT forearm. Osteopenia LEFT femor al neck. Patient's FRAX calculated 10 year probability for major osteoporotic fracture i s 6.8% and osteoporotic hip fracture is 0.9%.
== END 2024-09-17 09:39 | disposition home or self-care (01) ==
LOC: RAD 09:39
PROVIDERS: PCP Nurse Practitioner Family; Visit Provider Nurse Practitioner Family
DX: Z78.0 Asymptomatic menopausal state (principal); I70.201 Unspecified atherosclerosis of native arteries of extremities, right leg; M85.88 Other specified disorders of bone density and structure, other site
CPT/HCPCS: 77080; 93922

== ENCOUNTER → 2024-09-25 14:33 | Outpatient (BNVA) | payer MEDICARE, MEDICAID, SELFPAY | PROVIDERS: PCP Nurse Practitioner Family; Visit Provider Nurse Practitioner Family | DX: M54.12 Radiculopathy, cervical region (principal); M50.30 Other cervical disc degeneration, unspecified cervical region | CPT/HCPCS: 72052 ==

== ENCOUNTER 2024-10-04 05:00 | Outpatient (RCR) | payer MEDICARE, MEDICAID, SELFPAY | END 2024-11-02 23:59 | disposition home or self-care (01) | LOC: SPT 05:00 | PROVIDERS: PCP Nurse Practitioner Family; Visit Provider Nurse Practitioner Family | DX: M54.2 Cervicalgia (principal); M54.9 Dorsalgia, unspecified; G89.29 Other chronic pain | CPT/HCPCS: 97161 ==

== ENCOUNTER 2024-10-09 13:06 | Outpatient (CLI) | payer MEDICARE, MEDICAID, SELFPAY ==
--- NOTE | 2024-10-09 13:00 | MR_ITS ---
WS: [email or web address] MRI CERVICAL SPINE with and without contrast HISTORY: M43.12 - Spondylolisthesis, cervical region COMPARISON: 09/25/2024 Technique: Multiplanar, multisequence noncontrast imaging of the cervical spine. Postcontrast sequences Omnipaque 20 mL. Straightening and slight reversal of the normal cervical lordosis. Slight retrolisthesis of C5. 3 mm anterolisthesis of C3. There is significant motion artifact on all sequences despite repeated attempts at obtaining a satisfactory exam. No signal abnormality in the cord. Craniocervical junction, C1 and C2 relationship, odontoid process and soft tissues are normal. C2-C3: Normal. C3-C4: Annular disc bulge with a central disc protrusion, bilateral facet arthritis and foraminal stenosis. C4-C5: Diffuse osteophytic ridging with disc bulging and facet arthritis. Severe central and bilateral foraminal stenosis. C5-C6: Osteophytic ridging, disc disease and facet disease. Central disc protrusion. Bilateral foraminal disc osteophytes. Severe central and bilateral foraminal stenosis. C6-C7: Diffuse osteophytic ridging with bilateral foraminal disc osteophyte complexes. Bilateral facet arthritis. Severe central and bilateral foraminal stenosis. C7-T1: No stenosis. Postcontrast imaging is limited. No evidence for discitis or osteomyelitis. MR/MR cervical spine wo/w [id number] IMPRESSION: 1. Quality of this examination is compromised by patient motion. 2. Advanced degenerative facet disease and disc disease throughout the cervica l spine. 3. C3-4: Central disc protrusion deforming the central thecal sac. Central jose nosis due to the disc protrusion with foraminal stenosis. 4. C4-5, C5-6 and C6-7: Severe central and bilateral foraminal stenosis. 5. No enhancing lesions.
[2024-10-09] MEDS: gadobenate dimeglumine 20 mL vial IV (14:06)
== END 2024-10-09 13:07 | disposition home or self-care (01) ==
LOC: RAD 13:07
PROVIDERS: PCP Nurse Practitioner Family; Visit Provider Nurse Practitioner Family
DX: M43.12 Spondylolisthesis, cervical region (principal)
CPT/HCPCS: 72156

== ENCOUNTER 2024-11-03 05:00 | Outpatient (RCR) | payer MEDICARE, MEDICAID, SELFPAY | END 2024-12-03 23:59 | disposition home or self-care (01) | LOC: SPT 05:00 | PROVIDERS: PCP Nurse Practitioner Family; Visit Provider Nurse Practitioner Family | DX: M54.2 Cervicalgia (principal); M54.9 Dorsalgia, unspecified; G89.29 Other chronic pain | CPT/HCPCS: 97110; 97112; 97140; 97530 ==

== ENCOUNTER → 2024-11-18 16:33 | Outpatient (BNVA) | payer MEDICARE, MEDICAID, SELFPAY | PROVIDERS: PCP Nurse Practitioner Family; Visit Provider Nurse Practitioner Family | DX: N39.0 Urinary tract infection, site not specified (principal) | CPT/HCPCS: 81003; 87086 ==

== ENCOUNTER 2024-12-04 13:08 | Outpatient (CLI) | payer MEDICARE, MEDICAID, SELFPAY ==
--- NOTE | 2024-12-04 13:14 | MR_ITS ---
WS: [email or web address] MRI THORACIC SPINE noncontrast HISTORY: LUMBAR SPONDYLOSIS/SACROILITIS COMPARISON: None available. TECHNIQUE: Multiplanar sequences are performed in sagittal and axial planes. C3-4 Central disc osteophyte protrusion. Increase in thoracic kyphosis. Disc spaces are narrowed. No acute fracture or marrow edema. No cord compression. Normal signal within the cord. T1-2: Mild facet arthritis and foraminal stenosis. T2-3: Mild facet arthritis and a shallow LEFT paracentral disc protrusion. 2 mm anterolisthesis of T2. T3-4: Mild facet arthritis. T4-5: Small central disc protrusion and mild foraminal stenosis and facet arthritis. T5-6: Mild facet arthritis and foraminal stenosis. T6-7: Mild foraminal stenosis and facet arthritis. T7-8: Mild foraminal stenosis and facet arthritis. T8-9: Moderate bilateral foraminal stenosis and facet arthritis. T9-10: Moderate facet arthritis and foraminal stenosis. T10-11: Mild foraminal stenosis and facet arthritis. T11-12: Moderate facet joint arthritis encroaching upon the thecal sac and mild foraminal stenosis. No paraspinal soft tissue abnormalities. MR/MR thoracic spin wo con* [id number] IMPRESSION: 1. Increase in thoracic kyphosis with multilevel facet joint arthritis. 2. No high-grade central stenosis. Normal signal in the cord. 3. Mild to moderate facet joint arthritis as described above. Most significant facet arthritis from T8-9 through T10-11.
--- NOTE | 2024-12-04 13:14 | MR_ITS ---
WS: [email or web address] MRI LUMBAR SPINE NONCONTRAST HISTORY: LUMBAR SPONDYLOSIS/SACROLITIS COMPARISON: 10/23/2019 TECHNIQUE: Sagittal and axial multisequence imaging is submitted. Curvature and increased lordosis lumbar spine. Mild anterior wedging of T11. Retrolisthesis 3 mm T12 and L1. L5 anterolisthesis by 5 mm. No acute fractures. Normal lumbar alignment with no compression fractures or marrow edema. Disc spaces are narrowed and desiccated throughout. Conus terminates normally at L1-2 disc level. L1-L2: Osteophytic ridging and mild disc bulging and facet arthritis. Moderate bilateral foraminal stenosis. Ligamentum flavum hypertrophy. L2-L3: Marked annular disc bulging with severe ligamentum flavum and facet joint arthropathy. Small RIGHT paracentral disc protrusion. Moderate to severe central with bilateral subarticular recess and foraminal stenosis. Similar to the prior study. L3-L4: Diffuse annular disc bulging with marked facet arthritis. Moderate bilateral foraminal stenosis with mild central and subarticular recess stenosis. Ligamentum flavum and facet arthritis. L4-L5: Disc bulging with effacement of ventral CSF. Mild narrowing of the subarticular recesses. No central stenosis. Moderate ligamentum flavum and facet arthritis. Mild foraminal stenosis. L5-S1: Annular disc bulging with a central disc protrusion. Marked facet arthritis. Mild bilateral foraminal stenosis. Paravertebral soft tissues are normal. Small LEFT renal cyst. MR/MR lumbar spine wo con* [id number] IMPRESSION: 1. Multilevel at advanced degenerative disc and facet arthropathy. 2. No significant progression since 2019. 3. L2-3: Moderate to severe central with subarticular recess and foraminal jose nosis. Small RIGHT paracentral disc protrusion. Severe facet and ligamentum fla vum disease. 4. L3-4: Mild central and subarticular recess stenosis with moderate foraminal stenosis. 5. Mild bilateral foraminal stenosis at L4-5 and L5-S1. 6. No acute fractures.
== END 2024-12-04 13:09 | disposition home or self-care (01) ==
LOC: RAD 13:09
PROVIDERS: PCP Nurse Practitioner Family; Visit Provider Anesthesiology
DX: M47.816 Spondylosis without myelopathy or radiculopathy, lumbar region (principal); M46.1 Sacroiliitis, not elsewhere classified; M47.814 Spondylosis without myelopathy or radiculopathy, thoracic region; M40.204 Unspecified kyphosis, thoracic region; M51.369 Other intervertebral disc degeneration, lumbar region without mention of lumbar back pain or lower extremity pain; M48.061 Spinal stenosis, lumbar region without neurogenic claudication; M51.26 Other intervertebral disc displacement, lumbar region; M89.38 Hypertrophy of bone, other site; M48.07 Spinal stenosis, lumbosacral region
CPT/HCPCS: 72146; 72148

== ENCOUNTER → 2024-12-16 12:54 | Outpatient (BNVA) | payer OTHER, MEDICAID, SELFPAY | PROVIDERS: PCP Nurse Practitioner Family; Visit Provider Internal Medicine | DX: E78.5 Hyperlipidemia, unspecified (principal); I10 Essential (primary) hypertension; E66.9 Obesity, unspecified; Z68.41 Body mass index [BMI] 40.0-44.9, adult; G47.33 Obstructive sleep apnea (adult) (pediatric); M79.605 Pain in left leg; M79.604 Pain in right leg; Z79.82 Long term (current) use of aspirin | CPT/HCPCS: 99214 ==

== ENCOUNTER → 2025-03-30 08:27 | Outpatient (BNVA) | payer MEDICARE, MEDICAID, SELFPAY | PROVIDERS: PCP Nurse Practitioner Family; Visit Provider Orthopaedic Surgery | DX: M48.02 Spinal stenosis, cervical region (principal); M48.061 Spinal stenosis, lumbar region without neurogenic claudication | CPT/HCPCS: 72050; 72110; 99204 ==